=== PATIENT | male | born 1970 | race Caucasian/White ===

== ENCOUNTER 2019-10-13 20:36 | Emergency (ER) | payer MEDICARE, SELFPAY ==
[2019-10-13 20:38] VITALS: BP 137/80; PULSE 70; RESP 18; TEMP 36.7; O2SAT 96
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
[2019-10-13 20:40] VITALS: BMI 27.6
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
[2019-10-13 21:01] LABS: Basophils # 0.1 K/mm3 (0-0.2); Basophils % 0.6 % (0.1-2.0); Eosinophils # 0.4 K/mm3 (0.0-0.4); Eosinophils % 2.9 % (0.1-12.0); Hematocrit 44.7 % (42.0-52.0); Hemoglobin 15.5 g/dL (14.1-18.0); Lymphocytes # 3.4 K/mm3 (0.7-4.5); Lymphocytes % 27.9 % (10-50); Mean Corpuscular HGB Conc 34.8 g/dL (31.8-35.4); Mean Corpuscular Hemoglobin 31.7 pg (27.0-31.2); Mean Corpuscular Volume 91.2 fl (80-94); Mean Platelet Volume 6.7 fl (7.4-10.4); Monocytes # 0.5 K/mm3 (0.1-1.0); Monocytes % 3.6 % (1.7-9.3); Platelet Count 350 K/mm3 (142-424); White Blood Count 12.3 K/mm3 (4.8-10.8)
[2019-10-13 21:02] LABS: Alanine Aminotransferase 17 U/L (12-78); Albumin/Globulin Ratio 1.4 (1.1-1.8); Alkaline Phosphatase 49 U/L (38-126); Anion Gap 12.2 mEq/L (5-15); Aspartate Amino Transferase 30 U/L (17-59); Bilirubin,Total 1.2 mg/dl (0.2-1.3); Blood Urea Nitrogen 23 mg/dl (9-20); Calcium 9.9 mg/dl (8.4-10.2); Carbon Dioxide 33 mmol/L (22.0-30.0); Chloride 97 mmol/L (98-107); Creatinine Clearance Estimated 88 mL/min (50-200); Estimated Glomerular Filt Rate 58 ml/min (>60); GFR (African American) 70 ML/MIN (>60); Globulin 3.7 g/dL (1.3-3.2); Glucose 113 mg/dl (74-100); Potassium 3.2 mmoL/L (3.5-5.1); Sodium 139 mmol/L (136-145); Total Protein,Serum 8.7 g/dl (6.3-8.2)
--- NOTE | 2019-10-13 21:04 | PC.NURSE ---
Patient still has equal strong popliteal and pedal pulses in both legs.
[2019-10-13 21:05] VITALS: BP 140/76; PULSE 70; RESP 15; O2SAT 100
--- NOTE | 2019-10-13 21:12 | PC.NURSE ---
ortho medication specialist paged
--- NOTE | 2019-10-13 21:15 | PC.NURSE ---
on phone with Dr. Bullock at this time
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
[2019-10-13 21:48] VITALS: BP 143/76; PULSE 71; PULSE 75; RESP 16; RESP 18; TEMP 36.7; O2SAT 98
[2019-11-09 09:49] LABS: POC Glucose,Bedside 93 (70-110)
== END 2019-10-13 21:56 | disposition home or self-care (01) ==
PROVIDERS: Emergency Provider Emergency Medicine; PCP Family Medicine
DX: S82.454A Nondisplaced comminuted fracture of shaft of right fibula, initial encounter for closed fracture (principal); S81.831A Puncture wound without foreign body, right lower leg, initial encounter; Z23 Encounter for immunization; W34.00XA Accidental discharge from unspecified firearms or gun, initial encounter; W10.8XXA Fall (on) (from) other stairs and steps, initial encounter
CPT/HCPCS: 71045; 72170; 73590; 80053; 82962; 85025; 90471; 90714; 96365; 96375; 99284; J2405

== ENCOUNTER 2019-10-19 09:53 | Outpatient (RCR) | payer MEDICARE, SELFPAY | END 2019-10-19 10:20 | disposition home or self-care (01) | LOC: PT 09:53 | PROVIDERS: Visit Provider Orthopaedic Surgery | DX: S82.454A Nondisplaced comminuted fracture of shaft of right fibula, initial encounter for closed fracture (principal); W34.00XA Accidental discharge from unspecified firearms or gun, initial encounter | CPT/HCPCS: 97760 ==

== ENCOUNTER 2019-11-02 09:30 | Outpatient (RCR) | payer MEDICARE, SELFPAY ==
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
== END 2019-11-02 09:35 | disposition home or self-care (01) ==
LOC: PT 09:30
PROVIDERS: PCP Family Medicine; Visit Provider Orthopaedic Surgery
DX: S82.454A Nondisplaced comminuted fracture of shaft of right fibula, initial encounter for closed fracture (principal); W34.00XA Accidental discharge from unspecified firearms or gun, initial encounter
CPT/HCPCS: 97110; 97112; 97163

== ENCOUNTER → 2019-11-12 08:39 | Outpatient (CLI) | payer MEDICARE, SELFPAY ==
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
== END ==
PROVIDERS: PCP Family Medicine; Visit Provider Orthopaedic Surgery
DX: S82.409A Unspecified fracture of shaft of unspecified fibula, initial encounter for closed fracture (principal); W34.00XA Accidental discharge from unspecified firearms or gun, initial encounter
CPT/HCPCS: 73590

== ENCOUNTER 2020-07-03 14:10 | Emergency (ER) | payer MEDICARE, SELFPAY ==
[2020-07-03 14:35] VITALS: BP 137/91; PULSE 71; RESP 23; TEMP 36.8; O2SAT 98; BMI 29.5
--- NOTE | 2020-07-03 14:38 | XR_ITS ---
PROCEDURE: XR CHEST 2V CLINICAL HISTORY: COUGH COMPARISON: CR XR CHEST PORTABLE from 10/13/2019 FINDINGS: The cardiomediastinal silhouette and pulmonary vascularity are within normal limits. The lungs are clear without infiltrates, suspicious nodules, or pleural effusions. No acute bony abnormalities. IMPRESSION: No acute findings. Dictated by: Alden Devi MD 07/03/2020 14:50 Alden Devi MD in [place] 07/03/2020 14:50
--- NOTE | 2020-07-03 15:01 | HMH.EDUTC ---
[facility] [place] Impression: Persistent dry cough Allergic rhinitis Qualifiers: Allergic rhinitis trigger: unspecified Allergic rhinitis seasonality: unspecified Qualified Code(s): J30.9 - Allergic rhinitis, unspecified Disposition: Home, Self-Care Condition on Discharge: Good Instructions: Allergic Rhinitis, Cough, DI for Allergic Rhinitis, Albuterol Oral Inhalation, Fluticasone Nasal [place] Additional Instructions: *Monitor Temp, Over the counter Motrin or Tylenol as directed/as needed Tylenol every 4 hours and Motrin every 6 hours (as long as your family doctor has told you that you can take it) for fever or pain. and straight to ER if unable to lower temp less than 101.0 after medication given *Warm salt water gargles may help to soothe the throat *Throat Lozenges *Warm fluids like tea with honey may help to soothe the throat and help with coughing *Sleep elevated *Humidifier/Vaporizer *Flonase 2 sprays in each nostril daily but be aware that it may take 2-3 days before you notice improvement Use inhaler as prescribed if any shortness of breath or wheezing ?Inhaler every 4-6 hours as needed like we discussed. If unsure how to use it, ask pharmacist to demonstrate how. Should help open airways and improve cough, wheezing, and shortness of breath Follow up IMMEDIATELY for new or worsening symptoms or no Noticeable improvement over the next 48-72 hours. 911 for difficulty breathing or swallowing You were tested for today for COVID19 your test result should be back in the next 24-48 hours, you may call to the [facility] to see if your test results are back in the next 48 hours [phone] [facility] hours are 9am-9pm You was given a handout with instructions for Self Quarantine and Self isolation for while you wait on test results and what to do if they are positive If you are positive the Health Dept will be contacting you also Prescriptions: Albuterol Sulfate [Proventil-HFA 90mcg/puff Inh] 1 - 2 puffs IH Q4HP PRN #1 inh PRN Reason: Shortness Of Breath Transmission Status: Pending to [id number] Fluticasone Propionate [Flonase 50mcg nasal spray 16gm] 1 spr NS DAILY #1 bottle Transmission Status: Pending to [id number] Referrals: Xavier Crews MD [Primary Care Provider] - As needed Time of Disposition: 15:21 Medical Decision Making - Sebastian Inquiry Pt receiving controlled substance: No Sebastian was queried for this patient: No Vital Signs: 07/03/20 14:35 Temperature 98.2 F Temperature Source Oral Pulse Rate [Right] 71 Respiratory Rate 23 Blood Pressure [Right Arm] 137/91 H Blood Pressure Mean [Right Arm] 106 Blood Pressure Source [Right Arm] Automatic Cuff 02 Sat by Pulse Oximetry 98 Oxygen Delivery Method Room Air Orders (Tests/Meds): ORDERS Category Date Time Status Covid-19 Nasal PCR ([facility]) Routine Lab 07/03/20 14:59 Ordered - Radiology Data #1 Image(s): Chest Image Reviewed: Yes I have reviewed radiologist's interpretation Preliminary Findings: Normal/NAD IMPRESSION: No acute findings. [facility] [place] - General Stated complaint: cough Time Seen by Provider: 07/03/20 15:01 Mode of Arrival: Family Vehicle Source of Information: Patient Description of Symptoms (Recalled from Triage Doc. by RN): Pt c/o dry, persistant cough that has been present for about 3 wk. Pt denies any fevers, dyspnea, or n/v/d. Pt states he thinks this cough is caused from cleaning out a ditry and cat feces filled home of some of his tenents. Pt reports the cough is absent if he is laying down or breathing in through his nose, and worsens when he is sitting up and talking. Pt does report a headache when he has bad coughing fits . HEENT Symptoms (Recalled from RN notes): No Resp Symptoms (Recalled from RN notes): Yes Skin Symptoms (Recalled from RN notes): No MS Symptoms (Recalled from RN notes): No Functional Status (Recalled from RN notes): na - History of Present Illness Provider Complaint: Patie
[2020-07-03 15:20] VITALS: BP 135/89; PULSE 76; RESP 20; TEMP 36.8; O2SAT 99
== END 2020-07-03 15:27 | disposition home or self-care (01) ==
PROVIDERS: Emergency Provider Nurse Practitioner; PCP Family Medicine
DX: R05 Cough (principal); J30.9 Allergic rhinitis, unspecified; Z20.822 Contact with and (suspected) exposure to COVID-19; E78.5 Hyperlipidemia, unspecified; F33.1 Major depressive disorder, recurrent, moderate; Z79.899 Other long term (current) drug therapy
CPT/HCPCS: 71046; 99202; G0463; U0003

== ENCOUNTER 2020-09-16 16:46 | Emergency (ER) | payer MEDICARE, SELFPAY ==
[2020-09-16 17:25] VITALS: BP 140/82; PULSE 56; RESP 19; TEMP 36.6; O2SAT 98; BMI 29.5
--- NOTE | 2020-09-16 17:29 | XR_ITS ---
PROCEDURE INFORMATION: Exam: XR Lumbosacral Spine Exam date and time: 09/16/20 05:29 PM Age: 50 years old Clinical indication: Injury or trauma; Other: Injured back lifting over the weekend. ; Sprain or strain, lumbar ligaments; Injury details: Patient stated he broke his back when he was 10. He has been on disability unemployment for many years. He injured his back after lifting during the weekend. Now with severe low back pain. TECHNIQUE: Imaging protocol: XR of the lumbosacral spine. Views: 2 or 3 views. COMPARISON: No relevant prior studies available. FINDINGS: Bones/joints: Old compression fracture T12 mild. Disc space narrowing L4-L5 with grade 1 spondylolisthesis. Soft tissues: Unremarkable. IMPRESSION: Disc space narrowing L4-L5 with grade 1 spondylolisthesis.
--- NOTE | 2020-09-16 17:57 | HMH.EDUTC ---
[facility] [place] Clinical Impression: Low back pain Qualifiers: Chronicity: unspecified Back pain laterality: unspecified Sciatica presence: without sciatica Qualified Code(s): M54.5 - Low back pain Disposition: Home, Self-Care Condition on Discharge: Good Instructions: Low Back Pain, DI for Low Back Pain, DI for Chronic Pain -- Adult Additional Instructions: Follow up with your Family Doctor for further treatment and evaluation of low back pain Continued taking prescribed Methocarbamol for muscle spasms and Tramadol for pain as prescribed Return if needed Follow up with Dermatology for evaluation of lesion on your neck Straight to ER if any life threatening symptoms Prescriptions: Mupirocin Calcium [Mupirocin 2% Cream 15gm] 1 applicatio TP TID 10 Days #1 tube Transmission Status: [id number] Referrals: Amado Villanueva MD [Referring] - Xavier Crews MD [Primary Care Provider] - Jen Cowan MD [Referring] - Medical Decision Making - Sebastian Inquiry Pt receiving controlled substance: No Sebastian was queried for this patient: No Vital Signs: 09/16/20 17:25 09/16/20 18:33 Temperature 97.8 F 97.8 F Temperature Source Oral Pulse Rate 56 L Pulse Rate [Right Brachial] 56 L Respiratory Rate 19 19 Blood Pressure 140/82 Blood Pressure [Right Arm] 140/82 Blood Pressure Mean [Right Arm] 101 Blood Pressure Source [Right Arm] Automatic Cuff Blood Pressure Position [Right Arm] Sitting 02 Sat by Pulse Oximetry 98 Oxygen Delivery Method Room Air Orders (Tests/Meds): ED MEDICATIONS Discontinued Medications Generic Name Dose Route Start Last Admin Trade Name Caitlin PRN Reason Stop Dose Admin Methylprednisolone Sodium Succinate 125 mg 09/16/20 18:27 09/16/20 18:31 Methylprednisolone Sod Succ 125mg Vial IM 09/16/20 18:28 125 mg ONCE ONE Administration - Radiology Data #1 Image(s): L-Spine Image Reviewed: Yes I have reviewed radiologist's interpretation IMPRESSION: Disc space narrowing L4-L5 with grade 1 spondylolisthesis. Medical Decision Narrative: Patient states that he has had SoluMedrol in the past without reactions or complications [facility] [place] - General Stated complaint: back pain Time Seen by Provider: 09/16/20 17:57 Mode of Arrival: Ambulatory Source of Information: Patient Limitations: No Limitations Description of Symptoms (Recalled from Triage Doc. by RN): PATIENT C/O LOWER BACK PAIN SINCE TUESDAY MORNING HEENT Symptoms (Recalled from RN notes): No Resp Symptoms (Recalled from RN notes): No Skin Symptoms (Recalled from RN notes): No MS Symptoms (Recalled from RN notes): Yes Functional Status (Recalled from RN notes): WNL - History of Present Illness Provider Complaint: Patient states that he did alot of pulling and tugging over the weekend and thinks he may have pulled something in his left lower back States that he seen the chiropractor this morning and they told him that he may need to come and get it checked and get some xrays States that they wanted him to get copies of the disc for them to view. States that he also wanted to have area on his left shoulder/neck area checked where he had a spot for about 10yrs and his dog scratched it and now it is peeling Denies loss of control of bowel or bladder - Related Data Home Medications Medication Instructions Recorded Confirmed loratadine 10 mg capsule 10 mg PO DAILY 02/07/20 08/08/20 Fluoxetine HCl 40 mg PO DAILY 07/03/20 08/08/20 Tamsulosin HCl 0.4 mg PO DAILY 07/03/20 08/08/20 methocarbamoL [Methocarbamol 750mg 750 mg PO Q6H 07/03/20 08/08/20 Tab] Previous Rx's Medication Instructions Recorded Albuterol Sulfate [Proventil-HFA 1 - 2 puffs IH Q4HP PRN #1 inh 07/03/20 90mcg/puff Inh] Fluticasone Propionate [Flonase 1 spr NS DAILY #1 bottle 07/03/20 50mcg nasal spray 16gm] bupropion HCl 150 mg 24 hr tablet, See Rx Instructions .ROUTE 07/30/20 extended release .COMPLEX #90
[2020-09-16 18:33] VITALS: BP 140/82; PULSE 56; RESP 19; TEMP 36.6; O2SAT 98
== END 2020-09-16 18:35 | disposition home or self-care (01) ==
PROVIDERS: Emergency Provider Nurse Practitioner; PCP Family Medicine
DX: M54.5 Low back pain (principal); X50.0XXA Overexertion from strenuous movement or load, initial encounter; M48.54XS Collapsed vertebra, not elsewhere classified, thoracic region, sequela of fracture; F33.1 Major depressive disorder, recurrent, moderate; Z79.899 Other long term (current) drug therapy; E78.5 Hyperlipidemia, unspecified
CPT/HCPCS: G0463; 72100; 96372; 99202

== ENCOUNTER 2021-08-06 11:00 | Outpatient (RCR) | payer MEDICARE, SELFPAY ==
--- NOTE | 2021-07-20 13:56 | HMH.PTOPEV ---
PT Outpatient Evaluation Rehab PT Outpatient Evaluation Start: 07/20/21 13:03 Freq: Status: Active Protocol: Document 07/20/21 13:44 CARITO (Rec: 07/20/21 13:56 PHORMARISOL [id number]) Electronically Signed By Hugo An, PT 07/20/21 13:44 Outpatient Therapy Subjective History Subjective History Pt is 50 yowm who presents with c/o chronic low back pain x ~ 40 yrs ( I broke my back when I was 10 ) with worse symptoms on L side x ~2-3 wks with insidious onset. He reports constant aching pain with sharp pains intermittently. He has no numbness or tingling in the LEs. He reports seeing a chiropractor ~2-3 x/wk which helps with his pain. Chief Complaint Pain,Stiff Symptom Type Ache,Sharp Symptoms Relieved By Rest/Positioning Symptoms Aggravated By Standing,Physical Activity, Twisting,Walking Prior Functional Limitations Lifting Current Functional Limitations Lifting,Housework,Standing, Recreation Activity,Walking, Bending/Stooping Symptom Description Constant but Variable Level of pain today (0-10) 4 Pain scale - at its worst (0-10) 8 Lumbopelvic Eval Posture Thoracic Spine Posture Standing Position Increased Kyphosis Lumbar Spine Posture Standing Position Flattened,Flexed Palapation tenderness left lumbar spinal tenderness Yes paraspinal tenderness Yes buttock tenderness Yes Lumbar/Sacral Palpation Findings Tenderness Lumbar/Sacral Palpation Overall Comment L SI Accessory Movement T-spine Vertebrae Accessory Movements Central P/A [place] that Elicit Symptoms T10 bilateral T11 bilateral T12 bilateral L-spine Vertebrae Accessory Movements Central P/A [place] that Elicit Symptoms L2 bilateral L3 bilateral L4 bilateral L5 bilateral S1 bilateral Range of Motion Lumbar Spine Active Flexion Range of 0-40 Motion (degrees) Lumbar Spine Active Extension Range of 0 Motion (degrees) Left Lumbar Spine Lateral Flexion Active 0-10 Range of Motion (degrees) Right Lumbar Spine Lateral Flexion 0-5 Active Range of Motion (degrees) Manual Muscle Test Left Knee Extension Stren
== END 2021-08-06 11:05 | disposition home or self-care (01) ==
LOC: PT 11:00
PROVIDERS: PCP Family Medicine; Visit Provider Nurse Practitioner Family
DX: M54.50 Low back pain, unspecified (principal)
CPT/HCPCS: 97010; 97014; 97033; 97110; 97140; 97163; G0283

== ENCOUNTER → 2022-02-18 13:33 | Outpatient (CLI) | payer MEDICARE, SELFPAY | PROVIDERS: PCP Family Medicine; Visit Provider Family Medicine | DX: R51.9 Headache, unspecified (principal) ==

== ENCOUNTER → 2022-02-18 14:21 | Outpatient (CLI) | payer MEDICARE, SELFPAY ==
[2022-02-18 18:56] LABS: Basophils # 0.1 K/mm3 (0-0.2); Eosinophils # 0.3 K/mm3 (0.0-0.4); Eosinophils % 3.7 % (0.1-12.0); Hematocrit 44.9 % (42.0-52.0); Hemoglobin 14.8 g/dL (14.1-18.0); Lymphocytes % 28.4 % (10-50); Mean Corpuscular Hemoglobin 30.5 pg (27.0-31.2); Mean Corpuscular Volume 92.7 fl (80-94); Mean Platelet Volume 8.3 fl (7.4-10.4); Monocytes # 0.4 K/mm3 (0.1-1.0); Monocytes % 5.6 % (1.7-9.3); Neutrophils # 4.2 K/mm3 (1.8-7.8); Neutrophils % 61.2 % (37.0-80.0); Platelet Count 333 K/mm3 (142-424); Red Blood Count 4.84 M/mm3 (4.60-6.20); Red Cell Distribution Width 13.6 % (11.5-17.5); White Blood Count 6.9 K/mm3 (4.8-10.8)
[2022-02-18 20:47] LABS: Hemoglobin A1C 5.3 % (4.0-6.0)
[2022-02-18 21:08] LABS: Alanine Aminotransferase 20 U/L (12-78); Albumin Level 4.2 g/dl (3.5-5.0); Albumin/Globulin Ratio 1.4 (1.1-1.8); Alkaline Phosphatase 66 U/L (38-126); Anion Gap 15.7 mEq/L (5-15); Aspartate Amino Transferase 24 U/L (17-59); Bilirubin,Total 0.4 mg/dl (0.2-1.3); Blood Urea Nitrogen 21 mg/dl (9-20); Calcium 10.1 mg/dl (8.4-10.2); Carbon Dioxide 27 mmol/L (22.0-30.0); Chloride 101 mmol/L (98-107); Chol/HDL Ratio 4.3 (1-3.5); Cholesterol 194 mg/dl (140-200); Estimated Glomerular Filt Rate 88 ml/min (>60); GFR (African American) 107 ML/MIN (>60); Globulin 2.9 g/dL (1.3-3.2); Glucose 90 mg/dl (74-100); HDL Cholesterol 45 mg/dl (40-60); Potassium 3.7 mmoL/L (3.5-5.1); Sodium 140 mmol/L (136-145); Total Protein,Serum 7.1 g/dl (6.3-8.2); Triglycerides 224 mg/dl (30-150); VLDL Cholesterol 45 mg/dL (0-40)
[2022-02-18 21:19] LABS: Direct LDL Cholesterol 106.07 mg/dL (100-129)
[2022-02-18 21:40] LABS: Prostate Specific Ag Screen 0.7 ng/ml (0.0-4.0); Thyroid Stimulating Hormone 0.99 uIU/mL (0.465-4.68)
== END ==
PROVIDERS: PCP Family Medicine; Visit Provider Family Medicine
DX: Z00.00 Encounter for general adult medical examination without abnormal findings (principal); R51.9 Headache, unspecified; E11.9 Type 2 diabetes mellitus without complications; Z12.5 Encounter for screening for malignant neoplasm of prostate; E03.9 Hypothyroidism, unspecified
CPT/HCPCS: 80053; 80061; 83036; 84443; 85025; G0103

== ENCOUNTER → 2022-03-11 13:46 | Outpatient (CLI) | payer MEDICARE, SELFPAY ==
--- NOTE | 2022-03-11 13:46 | MR_ITS ---
FINAL REPORT CLINICAL HISTORY: headache, memory loss. WORSE 2 MONTHS. FINDINGS: Multi planar MR imaging was obtained through the brain without contrast. The midline structures appear intact. There is no evidence of Chiari malformation. On T2 and flair axial images the brain parenchyma is homogeneous. On diffusion-weighted images there is no evidence of restricted diffusion. There is lobular mucoperiosteal thickening in the maxillary sinuses, ethmoid air cells and sphenoid sinuses consistent with chronic pansinusitis. The seventh and eighth nerve root complexes are intact. IMPRESSION: No acute intracranial abnormality. Reviewed, Interpreted and Dictated by Phillip Perez MD Transcribed by Dharmesh Crenshaw Authenticated and . [facility]
== END ==
PROVIDERS: PCP Family Medicine; Visit Provider Specialist
DX: F41.9 Anxiety disorder, unspecified (principal); R51.9 Headache, unspecified
CPT/HCPCS: 70551

== ENCOUNTER → 2022-03-11 14:41 | Outpatient (CLI) | payer MEDICARE, SELFPAY ==
[2022-03-11 16:42] LABS: Erythrocyte Sedimentation Rate 12 mm/hr (0-20)
[2022-03-11 19:02] LABS: Thyroid Stimulating Hormone 1.01 uIU/mL (0.465-4.68)
[2022-03-11 19:38] LABS: Vitamin B12 518 pg/mL (239-931)
[2022-03-11 20:06] LABS: Folate 9.39 ng/mL
[2022-03-27 21:28] LABS: Antinuclear Antibodies (ANA) Negative
== END ==
PROVIDERS: PCP Family Medicine; Visit Provider Specialist
DX: R51.9 Headache, unspecified (principal); R41.3 Other amnesia
CPT/HCPCS: 36415; 70551; 82607; 82746; 84443; 85651; 86038

== ENCOUNTER → 2022-03-16 13:20 | Outpatient (CLI) | payer MEDICARE, SELFPAY | LOC: SL 13:22 | PROVIDERS: PCP Family Medicine; Visit Provider Specialist | DX: R41.3 Other amnesia (principal); R51.9 Headache, unspecified; G47.33 Obstructive sleep apnea (adult) (pediatric); R06.83 Snoring | CPT/HCPCS: G0399 ==

== ENCOUNTER → 2023-02-24 14:50 | Outpatient (CLI) | payer MEDICARE, SELFPAY ==
[2023-02-24 15:28] LABS: Basophils # 0.1 K/mm3 (0-0.2); Basophils % 1.4 % (0.1-2.0); Eosinophils # 0.2 K/mm3 (0.0-0.4); Hematocrit 43.9 % (42.0-52.0); Hemoglobin 15.8 g/dL (14.1-18.0); Lymphocytes % 37.4 % (10-50); Mean Corpuscular HGB Conc 35.9 g/dL (31.8-35.4); Mean Corpuscular Hemoglobin 32.1 pg (27.0-31.2); Mean Corpuscular Volume 89.5 fl (80-94); Monocytes # 0.2 K/mm3 (0.1-1.0); Monocytes % 3.8 % (1.7-9.3); Neutrophils # 2.8 K/mm3 (1.8-7.8); Neutrophils % 53.4 % (37.0-80.0); Platelet Count 254 K/mm3 (142-424); Red Cell Distribution Width 13.4 % (11.5-17.5); White Blood Count 5.3 K/mm3 (4.8-10.8)
[2023-02-24 16:35] LABS: Alanine Aminotransferase 28 U/L (12-78); Albumin Level 4.4 g/dl (3.5-5.0); Albumin/Globulin Ratio 1.5 (1.1-1.8); Alkaline Phosphatase 49 U/L (38-126); Anion Gap 13.8 mEq/L (5-15); Aspartate Amino Transferase 30 U/L (17-59); Bilirubin,Total 0.7 mg/dl (0.2-1.3); Blood Urea Nitrogen 20 mg/dl (9-20); Calcium 9.6 mg/dl (8.4-10.2); Carbon Dioxide 27 mmol/L (22.0-30.0); Chloride 101 mmol/L (98-107); Chol/HDL Ratio 4.1 (1-3.5); Cholesterol 200 mg/dl (140-200); Estimated Glomerular Filt Rate 70 ml/min (>60); GFR (African American) 84 ML/MIN (>60); Glucose 92 mg/dl (74-100); HDL Cholesterol 49 mg/dl (40-60); Potassium 3.8 mmoL/L (3.5-5.1); Sodium 138 mmol/L (136-145); Total Protein,Serum 7.4 g/dl (6.3-8.2); Triglycerides 105 mg/dl (30-150); VLDL Cholesterol 21 mg/dL (0-40)
[2023-02-24 17:07] LABS: Prostate Specific Ag Screen 0.6 ng/ml (0.0-4.0)
== END ==
PROVIDERS: PCP Family Medicine; Visit Provider Family Medicine
DX: W34.00XA Accidental discharge from unspecified firearms or gun, initial encounter (principal); E78.5 Hyperlipidemia, unspecified; Z12.5 Encounter for screening for malignant neoplasm of prostate
CPT/HCPCS: 36415; 80053; 80061; 83655; 85025; G0103

== ENCOUNTER → 2023-03-02 06:45 | Outpatient (CLI) | payer MEDICARE, SELFPAY ==
--- NOTE | 2023-03-02 | CA_ITS ---
APPROVED REPORT Exam: Exercise Treadmill Technologist: Carolyne Balderas, Ht: 6 ft 0 in Wt: 217 lbs BSA: 2.21 m2 HR: 71 bpm BP: 137/86 mmHg Rhythm: NSR Medical History Medications: Lovastatin,,,,, Gabapentin,,,,, Pramipexole,,,,, TAMSULOSIN,,,,, Albuterol,,,,, ProMETHAZINE,,,,, Ibuprofen,,,,, Prednisone,,,,, LoraTADINE,,,,, Trazodone,,,,, Methocarbamol,,,,, AZITHROMYCIN,,,,, Stress Test Details Test: Raimundo HR Resting HR: 78 bpm Max Heart Rate (APMHR): 166 bpm Max HR Achieved: 145 bpm Target HR (85% APMHR): 141 bpm % of APMHR: 87 Recovery HR: 90 bpm HR response to stress: Normal HR response to stress BP Resting BP: 128.0/86.0 mmHg Max BP: 176.0/70.0 mmHg Recovery BP: 133.0/87.0 mmHg BP response to stress: Normal blood pressure response to stress. ECG Resting ECG: NSR Stress EC.[address] depression Arrhythmia: None Recovery ECG: Return to baseline within 3 minutes of recovery Recovery Arrhythmia: None Clinical Exercise duration: 09:00 min Highest Stage Achieved: III Exercise capacity: 10.1 METs Overall Exercise Capacity for Age: Average Stress ECG Conclusion The patient was able to exercise for a total of 9 minutes, 0 seconds Raimundo protocol. He achieved a total of 10.1 METS. He has average exercise capacity compared to age and sex matched peers. He has normal HR and BP response to exercise. Max HR: 145 %of PM: 87% Max BP: 176/70 METs: 10.1 Test stopped due to: SOA, fatigue Symptoms: No CP. Arrhythmias/Ectopy: None ST-T Changes: Average exercise capacity. Within normal ST response to exercise. Myoview images reported separately. Conclusion: Normal GXT. Myoview images reported separately. Test Summary REST . . . . . . . Sitting REST . . . . . . . Standing REST . . . . . . . Standing REST 04:32 0.0 0.0 78 . 128/ 86 . . Stage 1 01:00 10.0 1.7 91 . . . . Stage 1 02:00 10.0 1.7 109 . . . . Stage 1 03:00 10.0 1.7 114 . 176/ 70 . . Stage 2 01:00 12.0 2.5 122 . . . . Stage 2 02:00 12.0 2.5 130 . . . . Stage 2 03:00 12.0 2.5 129 . 176/ 70 . . Stage 3 01:00 14.0 3.4 136 . . . . Stage 3 02:00 14.0 3.4 141 . . . . Stage 3 . . . . . . . Myoview Injected Stage 3 03:00 14.0 3.4 145 . . . Stop exercise at 09:00 RECOVERY 01:00 0.0 0.0 128 . . . . RECOVERY 02:00 0.0 0.0 100 . . . . RECOVERY 03:00 0.0 0.0 93 . 157/ 96 . . RECOVERY 04:00 0.0 0.0 90 . 147/ 88 . . RECOVERY 05:00 0.0 0.0 90 . 133/ 87 . . RECOVERY 05:21 0.0 0.0 88 . 133/ 87 . . Electronically signed by : Amada Dunham MD 03/02/2023 12:56:46
--- NOTE | 2023-03-02 06:53 | NM_ITS ---
APPROVED REPORT Exam: Nuclear Stress Test Indication: CAD, H/O SC, HYPERLIPIDEMIA, SOB Patient Location: Outpatient Stress Tech: Carolyne Concepcion [facility] Tech:GISELA Joyner RT (R)(N)(M) Ht: 6 ft 1 in Wt: 213 lbs HR: 71 bpm BP: 137/86 mmHg BSA: 2.21 m2 Rhythm: NSR TID: 1.25 BMI: 28.0 History: CAD, H/O SC, HYPERLIPIDEMIA, SOB6 Procedure: Patient exercised on Raimundo protocol 9:00 minutes and sec, resting heart rate 71 bpm, resting blood pressure 137/86 mmHg, with exercise maximum heart rate achived was 145 bpm which is 87 % of the maximum predicted heart rate and blood pressure was 176/70 mmHg. Test was stopped due to FATIGUE. Patient denied any complaint of chest pain. Patient has Average exercise capacity, achieved 10.1 METs of workload on treadmill, the blood pressure response to exercise was normal. Cardiac Stress and Resting SPECT Images: Cardiac Stress and Resting SPECT images were obtained using technetium 99m Myoview 30.8 mCi stress and 10.13 mCi at rest. Resting and stress imaging in supine and prone positions demonstrate a medium sized, mild, reversible perfusion defect in the mid to distal septal and anteroseptal LV hilton. There is increased transient ischemic dilatation ratio (TID 1.25), suggestive of possible multivessel disease or balanced ischemia. Gated imaging demonstrates mild reduction in global LV systolic function. LVEF is calculated at 47%. Conclusion: Medium sized, mild, reversible perfusion defect in the mid to distal septal and anteroseptal LV hilton. Findings are suggestive of reversible ischemia. There is increased transient ischemic dilatation ratio (TID 1.25), suggestive of possible multivessel disease or balanced ischemia. Gated imaging demonstrates mild reduction in global LV systolic function. LVEF is calculated at 47%. Electronically signed by : Amada Dunham MD 03/02/2023 12:58:56
== END ==
LOC: RAD 06:48
PROVIDERS: PCP Family Medicine; Visit Provider Family Medicine
DX: R06.09 Other forms of dyspnea (principal); R94.39 Abnormal result of other cardiovascular function study
CPT/HCPCS: 78452; 93017; 93018; A9502

== ENCOUNTER → 2023-03-29 12:30 | Outpatient (CLI) | payer MEDICARE, SELFPAY ==
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
== END ==
LOC: RAD 12:31
PROVIDERS: PCP Family Medicine; Visit Provider Orthopaedic Surgery
DX: S82.201A Unspecified fracture of shaft of right tibia, initial encounter for closed fracture (principal); S82.401A Unspecified fracture of shaft of right fibula, initial encounter for closed fracture
CPT/HCPCS: 73590

== ENCOUNTER → 2023-03-30 07:41 | Outpatient (CLI) | payer MEDICARE, SELFPAY ==
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
== END ==
PROVIDERS: PCP Family Medicine; Visit Provider Physician Assistant
DX: E78.5 Hyperlipidemia, unspecified (principal); I25.10 Atherosclerotic heart disease of native coronary artery without angina pectoris; I25.2 Old myocardial infarction; R06.00 Dyspnea, unspecified; R07.9 Chest pain, unspecified; R94.30 Abnormal result of cardiovascular function study, unspecified; R94.31 Abnormal electrocardiogram [ECG] [EKG]; Z82.49 Family history of ischemic heart disease and other diseases of the circulatory system; Z87.891 Personal history of nicotine dependence
CPT/HCPCS: 93306

== ENCOUNTER 2023-04-01 07:55 | Day surgery (SDC) | payer MEDICARE, SELFPAY ==
[2023-04-01] VITALS (14 sets, daily range): BP systolic 100–138; BP diastolic 64–88; PULSE 44–69; RESP 16–20; TEMP 36.9–37; O2SAT 93–99; BMI 30.4
--- NOTE | 2023-04-01 07:13 | IR_ITS ---
APPROVED REPORT Patient Location: Outpatient PROCEDURES Left heart catheterization Left ventriculogram Selective coronary angiogram INDICATION Abnormal Myoview, Angina pectoris Informed consent was obtained prior to the procedure. COMPLICATIONS NONE Estimated Blood Loss: LESS THAN 10 ML TECHNIQUE One percent lidocaine used to anesthetize the right anterior aspect of the wrist. The right radial artery was accessed via the Seldinger technique. A 6 Chinese sheath was placed in the right radial artery. 2.5 mg of Verapamil, 800 mcg of nitroglycerin, 1mg Lidocaine and 5000 U Heparin were given through the arterial sheath. The papa catheter was also used to perform left heart catheterization, left ventriculogram and selective coronary angiogram. At the end of the procedure the sheath was removed good hemostasis was achieved using Traclet band, patient was transferred to the postop holding area in stable condition. ANGIOGRAPHIC RESULTS The left main artery Normal The left anterior descending artery Proximally normal with mid vessel diffuse 40% stenoses. The entire LAD is a small caliber vessel which does not reach the apex The circumflex artery Is codominant and has mild 10% luminal irregularities The right coronary artery Is codominant and has diffuse 10% mild luminal irregularities The CORBIN ventriculogram reveals Preserved 55 to 60% The left ventricular end-diastolic pressure 10 mmHg IMPRESSION Moderate nonflow limiting coronary disease throughout the small caliber mid LAD Preserved ejection fraction Normal left ventricular end-diastolic pressure PLAN 1. Aggressive risk factor modification 2. Medical management Electronically signed by : Alex Mckeon MD 04/01/2023 11:09:00
[2023-04-01 08:17] LABS: Basophils # 0.1 K/mm3 (0-0.2); Basophils % 1.3 % (0.1-2.0); Eosinophils # 0.2 K/mm3 (0.0-0.4); Eosinophils % 4.8 % (0.1-12.0); Hematocrit 44.4 % (42.0-52.0); Hemoglobin 15.6 g/dL (14.1-18.0); Lymphocytes % 39.1 % (10-50); Mean Corpuscular HGB Conc 35.2 g/dL (31.8-35.4); Mean Corpuscular Hemoglobin 31.7 pg (27.0-31.2); Mean Platelet Volume 6.7 fl (7.4-10.4); Monocytes # 0.3 K/mm3 (0.1-1.0); Monocytes % 5.3 % (1.7-9.3); Neutrophils # 2.5 K/mm3 (1.8-7.8); Neutrophils % 49.5 % (37.0-80.0); Platelet Count 228 K/mm3 (142-424); Red Blood Count 4.93 M/mm3 (4.60-6.20); Red Cell Distribution Width 13.4 % (11.5-17.5)
[2023-04-01 08:24] LABS: Chloride 103 mmol/L (98-107); Potassium 3.5 mmoL/L (3.5-5.1); Sodium 140 mmol/L (136-145)
[2023-04-01 08:27] LABS: Anion Gap 9.5 mEq/L (5-15); Blood Urea Nitrogen 19 mg/dl (9-20); Calcium 8.7 mg/dl (8.4-10.2); Carbon Dioxide 31 mmol/L (22.0-30.0); Creatinine Clearance Estimated 110 mL/min (50-200); Estimated Glomerular Filt Rate 70 ml/min (>60); GFR (African American) 84 ML/MIN (>60); Glucose 96 mg/dl (74-100)
[2023-04-01] MEDS: diphenhydrAMINE 50MG/ML VIAL 50 MG IV (10:48)
[2023-04-01] MEDS: VERAPAMIL 2.5MG/ML 2ML VIAL 2.5 MG IV (11:02)
[2023-04-01] MEDS: 0.9 % SODIUM CHLORIDE 500 ML 25 ML IV (11:03)
[2023-04-01] MEDS: HEPARIN 1,000 UNITS/500ML NS (CATH LAB) 3000 UNIT IV (11:03)
[2023-04-01] MEDS: LIDOCAINE 1% 10ML MDV 20 ML IJ (11:03)
[2023-04-01] MEDS: NITROGLYCERIN 800MCG/8ML SYR (CATH LAB) 800 MCG IA (11:03)
[2023-04-01] MEDS: HEPARIN 1,000 UNITS/ML 10ML VIAL (CATH LAB) 10000 UNIT IV (11:03)
[2023-04-01] MEDS: MIDAZOLAM HCL 1MG/1ML 5ML VIAL 1 MG IV (11:04)
[2023-04-01] MEDS: FENTANYL 100MCG/2ML VIAL 50 MCG IV (11:04)
[2023-04-01] MEDS: IOPAMIDOL-370 (76%);100ML BOTTLE 60 ML IV (13:38)
== END 2023-04-01 13:53 | disposition home or self-care (01) ==
PROVIDERS: PCP Family Medicine; Visit Provider Internal Medicine
DX: E78.5 Hyperlipidemia, unspecified (principal); I25.118 Atherosclerotic heart disease of native coronary artery with other forms of angina pectoris; I25.2 Old myocardial infarction; R06.00 Dyspnea, unspecified; R07.9 Chest pain, unspecified; R94.30 Abnormal result of cardiovascular function study, unspecified; R94.31 Abnormal electrocardiogram [ECG] [EKG]; Z82.49 Family history of ischemic heart disease and other diseases of the circulatory system; Z79.899 Other long term (current) drug therapy
CPT/HCPCS: 80048; 85025; 93458; 99152; C1725; C1760; C1769; J1644; Q9967

== ENCOUNTER 2023-06-29 10:45 | Outpatient (CLI) | payer MEDICARE, SELFPAY ==
[2023-06-29 11:13] LABS: Basophils # 0.1 K/mm3 (0-0.2); Basophils % 1.8 % (0.1-2.0); Eosinophils # 0.3 K/mm3 (0.0-0.4); Eosinophils % 5.9 % (0.1-12.0); Hematocrit 43.2 % (42.0-52.0); Hemoglobin 14.9 g/dL (14.1-18.0); Lymphocytes # 1.9 K/mm3 (0.7-4.5); Lymphocytes % 37.7 % (10-50); Mean Corpuscular HGB Conc 34.5 g/dL (31.8-35.4); Mean Corpuscular Hemoglobin 32.5 pg (27.0-31.2); Mean Corpuscular Volume 94.2 fl (80-94); Mean Platelet Volume 7.6 fl (7.4-10.4); Monocytes # 0.3 K/mm3 (0.1-1.0); Neutrophils # 2.4 K/mm3 (1.8-7.8); Neutrophils % 48.5 % (37.0-80.0); Platelet Count 263 K/mm3 (142-424); Red Blood Count 4.59 M/mm3 (4.60-6.20); Red Cell Distribution Width 13.9 % (11.5-17.5)
[2023-06-29 12:49] LABS: Chloride 104 mmol/L (98-107); Potassium 3.7 mmoL/L (3.5-5.1); Sodium 138 mmol/L (136-145)
[2023-06-29 12:51] LABS: Blood Urea Nitrogen 15 mg/dl (9-20); Estimated Glomerular Filt Rate 70 ml/min (>60); GFR (African American) 84 ML/MIN (>60)
[2023-06-29 12:52] LABS: Alanine Aminotransferase 31 U/L (12-78); Albumin Level 3.9 g/dl (3.5-5.0); Alkaline Phosphatase 52 U/L (38-126); Anion Gap 6.7 mEq/L (5-15); Aspartate Amino Transferase 33 U/L (17-59); Bilirubin,Direct 0.2 mg/dl (0.0-0.4); Bilirubin,Indirect 0.5 mg/dL (0.0-0.9); Bilirubin,Total 0.7 mg/dl (0.2-1.3); Bilirubin,Unconjugated 0.4 mg/dL (0.0-1.1); Calcium 9.2 mg/dl (8.4-10.2); Carbon Dioxide 31 mmol/L (22.0-30.0); Chol/HDL Ratio 3.7 (1-3.5); Cholesterol 147 mg/dl (140-200); Glucose 101 mg/dl (74-100); HDL Cholesterol 40 mg/dl (40-60); Total Protein,Serum 6.5 g/dl (6.3-8.2); Triglycerides 180 mg/dl (30-150); VLDL Cholesterol 36 mg/dL (0-40)
[2023-06-29 13:21] LABS: Thyroid Stimulating Hormone 1.06 uIU/mL (0.465-4.68)
[2023-06-29 13:31] LABS: Free T4 (Free Thyroxine) 1.03 ng/dl (0.78-2.19)
[2023-06-29 14:14] LABS: Direct LDL Cholesterol 66.44 mg/dL (100-129)
== END 2023-06-29 23:59 ==
LOC: LAB 10:47
PROVIDERS: Physician Assistant; PCP Family Medicine; Visit Provider Orthopaedic Surgery
DX: Z82.49 Family history of ischemic heart disease and other diseases of the circulatory system (principal); I25.2 Old myocardial infarction; I25.10 Atherosclerotic heart disease of native coronary artery without angina pectoris; R94.31 Abnormal electrocardiogram [ECG] [EKG]; R06.00 Dyspnea, unspecified; E78.5 Hyperlipidemia, unspecified; E11.9 Type 2 diabetes mellitus without complications; I11.9 Hypertensive heart disease without heart failure; R78.71 Abnormal lead level in blood
CPT/HCPCS: 36415; 80048; 80061; 80076; 83655; 84439; 84443; 85025

== ENCOUNTER 2023-09-06 09:25 | Day surgery (SDC) | payer MEDICARE, SELFPAY ==
[2023-09-01 10:38] VITALS: BMI 29.8
[2023-09-06] VITALS (7 sets, daily range): BP systolic 116–129; BP diastolic 54–77; PULSE 55–69; RESP 16–22; TEMP 36.4–36.6; O2SAT 93–99
[2023-09-06] MEDS: LACTATED RINGERS 1000ML 1,000 ML 25 ML IV (09:51)
--- NOTE | 2023-09-06 09:54 | P.PCN_ITS ---
Procedure: Date: 09/06/23 Patient Date of :: 1970 Procedure Performed:: Colonoscopy with polypectomy Indications:: History of colon polyps Performing Provider:: Calvin Mejia MD Referring Provider:: . Sedation:: Monitored anesthesia care Procedure:: After informed consent was obtained the patient was taken to the endoscopy suite. Sedation ensued after the patient was transferred to the left lateral d ecubitus position. Pulse, blood pressure, and oxygen saturation were monitored throughout the procedure. Digital rectal exam revealed no significant abnormality. The colonoscope was placed in position. The entire colon was evaluated. The colonoscope was carefully removed and the patient was transferred to recovery in stable condition. Please see findings and specimens below for detail. Findings:: Hemorrhoidal cushions Bowel preparation fair to moderate Moderate tortuosity Fairly profound lack of relaxation/spasticity Polyps (see specimens) Specimens:: Adjacent polyps at 30 cm (cold biopsy forceps) Polyp at 7 cm (cold snare) Recommendations:: Timing of repeat colonoscopy is pending pathology but will likely be in 2-3 years secondary to fair to moderate bowel preparation, tortuosity, and spasticity/lack of relaxation. Complications:: No immediate Estimated blood obtained (mL): 1 Colonoscopy Component Colonoscopy Component Was a colonoscopy performed during today's procedure?: Yes Recommended follow up colonoscopy of at least 10 years?: No If no, follow up colonoscopy recommended in ___ years?: (See above) Reason for not recommending >/= 10 yr follow-up interval?: (See above)
--- NOTE | 2023-09-06 10:44 | EXP.ANES.CKL ---
[facility] Disclaimer: The information contained in this section may have been updated after the patient was seen, as this information can be updated by other users. Medical History Abnormal result of cardiovascular function study Family history of ischemic heart disease History of [place] (myocardial infarction) Coronary artery disease Abnormal electrocardiogram [ECG] [EKG] Mood disorder Surgical History (Updated 09/06/23 @ 09:50 by Josefina Benoit RN) History of colonoscopy Family History Other Family history of diabetes mellitus type II Family history of stroke Social History Smoking Status: Never smoker alcohol intake: never substance use type: denies use current occupational status: disabled Travel in the last 8 weeks: Inside the [place] household members: spouse housing: house marital status: [facility] Anesthesia Checklist Patient Identification Patient Identification: Arm Band, Family and Verbal (Name & ) Structural Data Admitted From: Home Planned Operative Procedure/s: colonoscopy Consent for Planned Operative Procedure(s) Verified: Yes Verified Documents: Surgical Consent and History and Physical NPO Status Verified Time NPO: 07:00 Chart Verification Results Verified: CBC, BMP and ECG Additional verifications Patient : No Anesthesia Reactions: No Cardiovascular Assessment Heart Sounds: S1 & S2 Pulse Rhythm: Irregular Peripheral Edema: No Airway Assessment Mallampati Score:: Class II C-Spine Mobility Assessed: Yes (FROM) TMJ Mobility Assessed: Yes Dentition: Good Dentition (Nothing loose per pt.) Neurological Assessment Level of Consciousness: Awake, Alert, Appropriate and Follows Commands Anesthesia Plan Anesthesia Risk discussed: Yes Anesthesia Plan: Verified ASA Class: III Anesthesia Type: MAC
--- NOTE | 2023-09-06 10:45 | EXP.ANES.I ---
[facility] Anesthesia Record Part I Anesthesia Record I Intake, IV Amount: 300 Hydration: Adequate Estimated blood loss (mL): 1 Urine output (mL): 0 Blood Products used (#): none Blood Pressure: 125/54 SaO2: 95 Pulse Rate: 63 Airway Patency: Patent Respiratory Rate: 18 Temperature: 97.6 F Patient is:: Awake (Talking) and Stable Stable to PACU at:: 10:44
== END 2023-09-06 11:19 | disposition home or self-care (01) ==
PROVIDERS: PCP Family Medicine; Visit Provider Surgery
PROC: 0DJD8ZZ Inspection of Lower Intestinal Tract, Via Natural or Artificial Opening Endoscopic (ICD-10-PCS; CPT 45380; principal; 2023-09-06 10:30)
DX: Z12.11 Encounter for screening for malignant neoplasm of colon (principal); Z86.010 Personal history of colon polyps; K64.8 Other hemorrhoids; K63.5 Polyp of colon
CPT/HCPCS: 45380; 45385; J2704; J7120

== ENCOUNTER 2023-09-12 09:32 | Outpatient (CLI) | payer MEDICARE, SELFPAY ==
--- NOTE | 2023-09-12 09:36 | XR_ITS ---
FINAL REPORT CLINICAL HISTORY: SOA, COUGH X3 MONTHS COMPARISON: 07/03/2020 FINDINGS: Two views of the chest were obtained. The heart size and pulmonary vascularity are within normal limits. The mediastinum is normal. There are small left base opacities, atelectasis or pneumonia. There is no pneumothorax. The bony thorax is intact. IMPRESSION: Small left base opacities, atelectasis or pneumonia. Reviewed, Interpreted and Dictated by Sy Oreilly III, MD Transcribed by Tabitha Davila Authenticated and [facility]
== END 2023-09-12 23:59 | disposition home or self-care (01) ==
LOC: RAD 09:33
PROVIDERS: PCP Family Medicine; Visit Provider Nurse Practitioner Family
DX: R05.9 Cough, unspecified (principal); R06.09 Other forms of dyspnea
CPT/HCPCS: 71046

== ENCOUNTER 2023-09-19 12:22 | Outpatient (CLI) | payer MEDICARE, SELFPAY ==
--- NOTE | 2023-09-19 12:25 | XR_ITS ---
FINAL REPORT CLINICAL HISTORY: Back pain COMPARISON: 09/16/2020 FINDINGS: LUMBAR SPINE AP and lateral views were obtained. There is no acute fracture. There is 7 mm of anterolisthesis of L4 on L5. Mild degenerative changes are noted. Vertebrae are normal height. Prevertebral soft tissues are unremarkable. IMPRESSION: No acute bony abnormality. Reviewed, Interpreted and Dictated by Sy Oreilly III, MD Transcribed by Jaleesa Mcclellan Authenticated and [facility]
== END 2023-09-19 23:59 | disposition home or self-care (01) ==
LOC: RAD 12:23
PROVIDERS: PCP Nurse Practitioner Family; Visit Provider Family Medicine
DX: G89.29 Other chronic pain; M54.50 Low back pain, unspecified
CPT/HCPCS: 72100

== ENCOUNTER 2023-09-21 14:52 | Outpatient (CLI) | payer MEDICARE, SELFPAY ==
[2023-09-21 15:30] VITALS: PULSE 86; PULSE 90
[2023-09-21] MEDS: ALBUTEROL 0.083% 2.5 MG/3 ML NEB IH (15:30)
== END 2023-09-21 23:59 | disposition home or self-care (01) ==
LOC: RT 14:54
PROVIDERS: PCP Family Medicine; Visit Provider Nurse Practitioner Family
DX: R06.09 Other forms of dyspnea (principal); R05.3 Chronic cough; F17.210 Nicotine dependence, cigarettes, uncomplicated
CPT/HCPCS: 94060; 94640; J7613

== ENCOUNTER 2023-10-17 14:10 | Emergency (ER) | payer MEDICARE, SELFPAY ==
--- NOTE | 2023-10-17 14:11 | ED_ITS ---
Discharge Plan Disposition Patient Disposition: Home, Self-Care Condition: Good Prescriptions Prescriptions: No Action famotidine 20 mg tablet 20 mg PO DAILY Qty: 30 2RF benzonatate 100 mg capsule 100 mg PO TID PRN (Reason: cough) Qty: 30 1RF prednisone 20 mg tablet 20 mg PO BID 5 Days Qty: 10 0RF gybgrvbgmjlttbm-zuncwxxxh-IF 2-30-10 mg/5 mL syrup 10 ml PO Q6H PRN (Reason: cold symptoms) Qty: 200 1RF levofloxacin 750 mg tablet 750 mg PO DAILY Qty: 7 0RF gabapentin 600 mg tablet 600 mg PO QID Qty: 120 5RF nitroglycerin 0.4 mg tablet, sublingual 0.4 mg sublingual Q5M PRN (Reason: chest pain) Qty: 25 0RF Rx Instructions: do not exceed 3 doses per episode methocarbamol 750 mg tablet 750 mg PO Q8H PRN (Reason: muscle spasm) Qty: 90 10RF bupropion HCl 150 mg tablet extended release 24 hr See Rx Instructions .ROUTE .COMPLEX Qty: 90 1RF Dose Instruction: TAKE 1 TABLET BY MOUTH EVERY DAY Rx Instructions: TAKE 1 TABLET BY MOUTH EVERY DAY tamsulosin 0.4 mg capsule See Rx Instructions .ROUTE .COMPLEX Qty: 90 1RF Dose Instruction: TAKE 1 CAPSULE BY MOUTH EVERY DAY Rx Instructions: TAKE 1 CAPSULE BY MOUTH EVERY DAY trazodone 150 mg tablet 150 mg PO DAILY Qty: 90 3RF ibuprofen 600 mg tablet See Rx Instructions .ROUTE .COMPLEX Qty: 90 5RF Dose Instruction: TAKE 1 TABLET BY MOUTH THREE TIMES A DAY NEEDED FOR PAIN Rx Instructions: TAKE 1 TABLET BY MOUTH THREE TIMES A DAY NEEDED FOR PAIN pramipexole 1 mg tablet See Rx Instructions .ROUTE .COMPLEX Qty: 90 0RF Dose Instruction: TAKE 1 TABLET BY MOUTH EVERYDAY AT BEDTIME Rx Instructions: TAKE 1 TABLET BY MOUTH EVERYDAY AT BEDTIME aspirin 81 mg tablet,delayed release (DR/EC) See Rx Instructions .ROUTE .COMPLEX Qty: 90 3RF Dose Instruction: TAKE 1 TABLET BY MOUTH EVERY DAY Rx Instructions: TAKE 1 TABLET BY MOUTH EVERY DAY rosuvastatin [Crestor] 40 mg tablet 40 mg PO DAILY Qty: 30 2RF loratadine [Claritin] 10 mg tablet See Rx Instructions .ROUTE .COMPLEX Rx Instructions: TAKE ONE TABLET BY MOUTH DAILY FOR ALLERGIES Referrals Follow up/Referrals: Xavier Crews MD [Primary Care Provider] - See instructions Activity Restrictions/Add. Instructions Additional Instructions/Restrictions: Stay hydrated. 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 Return to ER for any worsening signs or symptoms as needed. Clinical Impressions Clinical Impression: Vasovagal near syncope Instructions Patient Instructions: DI for Syncope in Adults (Fainting) Discharge ED Provider: Ezequiel Bañuelos HPI <FEDE Nesbitt - Last Filed: 10/17/23 15:19> General Chief Complaint: Dizziness Stated Complaint: chest pain Time Seen by Provider: 10/17/23 14:11 History of Present Illness HPI narrative: Patient presents for evaluation of near syncope. Patient states that he was working in his shop and squatted down and when he stood up normally he got dizzy lightheaded and felt like his heart was racing. He stumbled but did not fall or pass out. He also reported some chest pressure but no specific pain shortness of breath fever chills hemoptysis hematochezia melena nausea vomiting diarrhea. Patient reports that his chest feels tight but denies diaphoresis or wheezing. Related Data Home Medications Medication Instructions Recorded Confirmed loratadine 10 mg tablet (Claritin) See Rx Instructions .Route .COMPLEX 09/01/23 09/16/23 Previous Rx's Medication Instructions Recorded methocarbamol 750 mg tablet 750 mg PO Q8H PRN muscle spasm #90 11/18/22 tabs nitroglycerin 0.4 mg sublingual 0.4 mg sublingual Q5M PRN chest 03/21/23 tablet pain #25 tabs bupropion HCl 150 mg 24 hr tablet, See Rx Instructions .Route 03/24/23 extended release .COMPLEX #90 tabs tamsulosin 0.4 mg capsule See Rx Instructions .Route 03/24/23 .COMPLEX #90 caps trazodone 150 mg tablet 150 mg PO DAILY #90 tabs 05/05/23 ibuprofen 600 mg tablet See Rx Instructions .Route 07/05/23 .COMPLEX #90 tabs pramipexole 1 mg tablet See Rx Instructions .Route 07/06/23 .COMPLEX #90 tabs benzonatate 100 mg capsule 100 mg PO TID PRN cough #30 caps 09/09/23 famotidine 20 mg tablet 20 mg PO DAILY #30 tabs 05/31/24 aspirin 81 mg tablet,delayed See Rx Instructions .Route 09/16/23 release .COMPLEX #90 tabs scfopwxyfxtawpc-hqitfvqudctqfgk-PK 10 ml PO Q6H PRN cold symptoms 09/16/23 2 mg-30 mg-10 mg/5 mL oral syrup #200 mL gabapentin 600 mg tablet 600 mg PO QID nerve #120 tabs 09/16/23 levofloxacin 750 mg tablet 750 mg PO DAILY #7 tabs 09/16/23 prednisone 20 mg tablet 20 mg PO BID 5 days #10 tabs 09/16/23 rosuvastatin 40 mg tablet (Crestor) 40 mg PO DAILY #30 tabs 10/07/23 Allergies Allergy/AdvReac Type Severity Reaction Status Date / Time pseudoephedrine AdvReac Mild RLS Verified 10/17/23 14:26 [From [facility]] [facility] <FEDE Nesbitt - Last Filed: 10/17/23 15:19> [facility] Disclaimer: The information contained in this section may have been updated after the patient was seen, as this information can be updated by other users. Medical History Abnormal result of cardiovascular function study Family history of ischemic heart disease History of UT (myocardial infarction) Coronary artery disease Abnormal electrocardiogram [ECG] [EKG] Mood disorder Previous leg gnosis of bipolar disorder. Currently stable under the care of PCP Surgical History History of colonoscopy Family History Other Family history of diabetes mellitus type II Family history of stroke Social History Smoking Status: Never smoker alcohol intake: never substance use type: denies use current occupational status: disabled Travel in the last 8 weeks: Inside the [place] household members: spouse housing: house marital status: <FEDE Nesbitt - Last Filed: 10/17/23 15:19> ROS Obtained: Yes Systems reviewed as appropriate & no additional complaints except as documented Physical Exam <FEDE Nesbitt - Last Filed: 10/17/23 15:19> General General appearance: alert and in no apparent distress Chest Chest inspection: Present normal inspection and symmetric chest wall rise; Absent tenderness Respiratory Respiratory exam: Present normal lung sounds bilaterally; Absent respiratory distress, wheezes, stridor or accessory muscle use Cardiovascular Cardiovascular exam: Present regular rate, normal rhythm, normal heart sounds, +S1 and +S2 Abdominal Exam Abdominal exam: Present soft and normal bowel sounds; Absent tenderness Neurological Exam Neurological exam: Present alert and oriented X3 Psychiatric Psychiatric exam: Present normal affect and normal mood HEART Score <FEDE Nesbitt - Last Filed: 10/17/23 15:19> HEART Score HEART Score assessment performed?: Yes History (anamnesis): Slightly suspicious ECG: Normal Age: 45-65 years Risk factors: Atherosclerosis history Troponin: </= normal limit HEART Score: 3 <Ezequiel Bañuelos MD - Last Filed: 10/18/23 07:02> HEART Score HEART Score: 3 Critical Care <FEDE Nesbitt - Last Filed: 10/17/23 15:19> Critical Care Time Critical Care Time: No Medical Decision Making <FEDE Nesbitt - Last Filed: 10/17/23 15:19> Medical Records Medical records reviewed: Yes I reviewed the patient's medical records. Sebastian Inquiry Pt receiving controlled substance: No Vital Signs Vital Signs: 10/17/23 14:15 10/17/23 14:15 10/17/23 15:00 Temperature 97.9 F Temperature Source Oral Pulse Rate 97 H 75 Pulse Rate [Left] 83 Respiratory Rate 16 14 13 Blood Pressure 146/100 H 129/92 H Blood Pressure [Right Arm] 141/96 H Blood Pressure Mean [Right Arm] 111 Blood Pressure Source [Right Arm] Automatic Cuff Blood Pressure Position [Right Arm] Sitting 02 Sat by Pulse Oximetry 97 97 97 Oxygen Delivery Method Room Air 10/17/23 15:29 Temperature 97.9 F Temperature Source Pulse Rate 73 Pulse Rate [Left] Respiratory Rate 16 Blood Pressure 129/92 H Blood Pressure [Right Arm] Blood Pressure Mean [Right Arm] Blood Pressure Source [Right Arm] Blood Pressure Position [Right Arm] 02 Sat by Pulse Oximetry Oxygen Delivery Method Room Air Lab Data Lab results reviewed: Yes I reviewed the patient's lab results. Labs: Lab Results 10/17/23 14:10: WBC 5.7, RBC 4.71, Hgb 14.9, Hct 42.2, MCV 89.6, MCH 31.7 H, MCHC 35.4, RDW 14.0, Plt Count 280, MPV 7.5, Neut % (Auto) 53.4, Lymph % (Auto) 36.8, [place] % (Auto) 4.6, Eos % (Auto) 4.0, Baso % (Auto) 1.2, Neut # (Auto) 3.1, Lymph # (Auto) 2.1, [place] # (Auto) 0.3, Eos # (Auto) 0.2, Baso # (Auto) 0.1, Sodium 141, Potassium 3.6, Chloride 110 H, Carbon Dioxide 26, Anion Gap 8.6, BUN 24 H, Creatinine 1.00, Estimated Creat Clear 120, Estimated GFR 78, Est GFR ( Amer) 94, Glucose 101 H, Calcium 9.4, Magnesium 1.9, Total Bilirubin 0.5, AST 29, ALT 24, Alkaline Phosphatase 43, Troponin I < 0.01, Total Protein 7.3, Albumin 4.1, Globulin 3.2, Albumin/Globulin Ratio 1.3, TSH 0.57 10/17/23 14:10 10/17/23 14:10 Response Orders (Tests/Meds): ED MEDICATIONS Discontinued Medications Generic Name Dose Route Start Last Admin Trade Name Freq PRN Reason Stop Dose Admin Lactated Ringer's 1,000 mls @ 999 mls/hr 10/17/23 14:16 10/17/23 14:25 Lactated Ringer's 1000 Ml Bag IV 10/17/23 15:16 999 mls/hr .Q1H1M ONE Administration ORDERS Category Date Time Status Chest XR -- portable [XR chest portable] Stat Exams 10/17/23 14:16 Completed CBC w/Auto Diff [Complete Blood Count Auto Diff] Stat Lab 10/17/23 14:10 Completed CMP [Comprehensive Metabolic Panel] Stat Lab 10/17/23 14:10 Completed Magnesium Stat Lab 10/17/23 14:10 Completed TSH [Thyroid Stimulating Hormone] Stat Lab 10/17/23 14:10 Completed Trop I [Troponin I] Stat Lab 10/17/23 14:10 Completed MDM Narrative Medical Decision Narrative: In summary patient is a 53-year-old male who presents to the emergency department for evaluation of near syncope. Patient is dynamically stable upon arrival, afebrile. Physical exam is unremarkable and nonfocal including no reproducible chest pain no dyspnea no diaphoresis. Patient does have a history of atherosclerotic cardiovascular disease and had a stress test in the last calendar year. Patient reports that his symptoms began after standing up quickly while working outside in his shop and he felt like he had a racing heart and was very lightheaded. Those symptoms resolved and he went to Dr. Crews's office for evaluation. They gave him aspirin and EMS gave him a 500 cc bolus en route to the ER. On arrival patient has no chest pain still reports feeling tightness in his chest without nausea vomiting abdominal pain chest pain.. Differential diagnosis includes ACS versus orthostatic hypotension versus vasovagal syncope etc. Initial workup will be conducted with hematologic labs chest x-ray twelve-lead EKG. Initial interventions include crystalloid bolus continuous cardiac monitoring and pulse oximetry. Initial workup reviewed by me shows that his hematologic labs are nonactionable with an undetectable troponin and twelve-lead EKG shows normal sinus rhythm without ACS pulm interpretation of his plain film chest x-ray shows no acute processes. Upon repeat evaluation patient has had no chest pain while in the ER no other recurrence of his symptoms. Given this patient has classic signs of vasovagal syndrome giving his resolution of symptoms. He is appropriate for discharge with close follow-up with cardiology. <Ezequiel Bañuelos MD - Last Filed: 10/18/23 07:02> Vital Signs Vital Signs: 10/17/23 14:15 10/17/23 14:15 10/17/23 15:00 Temperature 97.9 F Temperature Source Oral Pulse Rate 97 H 75 Pulse Rate [Left] 83 Respiratory Rate 16 14 13 Blood Pressure 146/100 H 129/92 H Blood Pressure [Right Arm] 141/96 H Blood Pressure Mean [Right Arm] 111 Blood Pressure Source [Right Arm] Automatic Cuff Blood Pressure Position [Right Arm] Sitting 02 Sat by Pulse Oximetry 97 97 97 Oxygen Delivery Method Room Air 10/17/23 15:29 Temperature 97.9 F Temperature Source Pulse Rate 73 Pulse Rate [Left] Respiratory Rate 16 Blood Pressure 129/92 H Blood Pressure [Right Arm] Blood Pressure Mean [Right Arm] Blood Pressure Source [Right Arm] Blood Pressure Position [Right Arm] 02 Sat by Pulse Oximetry Oxygen Delivery Method Room Air Lab Data Labs: Lab Results 10/17/23 14:10: WBC 5.7, RBC 4.71, Hgb 14.9, Hct 42.2, MCV 89.6, MCH 31.7 H, MCHC 35.4, RDW 14.0, Plt Count 280, MPV 7.5, Neut % (Auto) 53.4, Lymph % (Auto) 36.8, [place] % (Auto) 4.6, Eos % (Auto) 4.0, Baso % (Auto) 1.2, Neut # (Auto) 3.1, Lymph # (Auto) 2.1, [place] # (Auto) 0.3, Eos # (Auto) 0.2, Baso # (Auto) 0.1, Sodium 141, Potassium 3.6, Chloride 110 H, Carbon Dioxide 26, Anion Gap 8.6, BUN 24 H, Creatinine 1.00, Estimated Creat Clear 120, Estimated GFR 78, Est GFR ( Amer) 94, Glucose 101 H, Calcium 9.4, Magnesium 1.9, Total Bilirubin 0.5, AST 29, ALT 24, Alkaline Phosphatase 43, Troponin I < 0.01, Total Protein 7.3, Albumin 4.1, Globulin 3.2, Albumin/Globulin Ratio 1.3, TSH 0.57 Response Orders (Tests/Meds): ED MEDICATIONS Discontinued Medications Generic Name Dose Route Start Last Admin Trade Name Freq PRN Reason Stop Dose Admin Lactated Ringer's 1,000 mls @ 999 mls/hr 10/17/23 14:16 10/17/23 14:25 Lactated Ringer's 1000 Ml Bag IV 10/17/23 15:16 999 mls/hr .Q1H1M ONE Administration ORDERS Category Date Time Status Chest XR -- portable [XR chest portable] Stat Exams 10/17/23 14:16 Completed CBC w/Auto Diff [Complete Blood Count Auto Diff] Stat Lab 10/17/23 14:10 Completed CMP [Comprehensive Metabolic Panel] Stat Lab 10/17/23 14:10 Completed Magnesium Stat Lab 10/17/23 14:10 Completed TSH [Thyroid Stimulating Hormone] Stat Lab 10/17/23 14:10 Completed Trop I [Troponin I] Stat Lab 10/17/23 14:10 Completed ECG Data Tracing #1: Attestation: I reviewed this ECG and interpreted as documented below: ECG Narrative: Ventricular rate 88 beats a minute and normal sinus rhythm. ME 168, QRS 94, QTc 376. [place] normal. No ischemic change. Nonspecific T wave inversions lead III without reciprocal change. Good R wave progression in precordial leads. MDM Narrative Medical Decision Narrative: In summary patient is a 53-year-old male who presents to the emergency department for evaluation of near syncope. Patient is dynamically stable upon arrival, afebrile. Physical exam is unremarkable and nonfocal including no reproducible chest pain no dyspnea no diaphoresis. Patient does have a history of atherosclerotic cardiovascular disease and had a stress test in the last calendar year. Patient reports that his symptoms began after standing up quickly while working outside in his shop and he felt like he had a racing heart and was very lightheaded. Those symptoms resolved and he went to Dr. Crews's office for evaluation. They gave him aspirin and EMS gave him a 500 cc bolus en route to the ER. On arrival patient has no chest pain still reports feeling tightness in his chest without nausea vomiting abdominal pain chest pain. Differential diagnosis includes ACS versus orthostatic hypotension versus vasovagal syncope etc. Initial workup will be conducted with hematologic labs chest x-ray twelve-lead EKG. Initial interventions include crystalloid bolus continuous cardiac monitoring and pulse oximetry. Initial workup reviewed by me shows that his hematologic labs are nonactionable with an undetectable troponin and twelve-lead EKG shows normal sinus rhythm without ACS pulm interpretation of his plain film chest x-ray shows no acute processes. Upon repeat evaluation patient has had no chest pain while in the ER no other recurrence of his symptoms. Given this patient has classic signs of vasovagal versus orthostatic syndrome giving his resolution of symptoms. He is appropriate for discharge with close follow-up with cardiology. I was consulted by the JOSELINE, and we discussed the complexity of the problems being addressed. I approved the treatment and management plan for this patient?s care in the Emergency Department, thus performing a substantive portion of the medical decision making. Ezequiel Bañuelos MD
--- NOTE | 2023-10-17 14:12 | ECG_ITS ---
APPROVED REPORT Exam: Resting ECG HR:88 bpm ECG Measurements Heart Rate 88 AXES PA 168 P 7 QRSd 94 QRS 10 QT 330 T -11 QTc 376 Conclusion Sinus rhythm Electronically signed by : CHRISTI DAVIS, 10/18/2023 16:03:04
[2023-10-17 14:15] VITALS: BP 141/96; BP 146/100; PULSE 83; PULSE 97; RESP 14; RESP 16; TEMP 36.6; O2SAT 97; BMI 30.5
--- NOTE | 2023-10-17 14:16 | XR_ITS ---
FINAL REPORT CLINICAL HISTORY: Near syncope FINDINGS: A single portable view of the chest was obtained. The heart size and pulmonary vascularity are within normal limits. The mediastinum is within normal limits. There are left basilar opacities likely representing atelectasis or pneumonia. The bony thorax is intact. IMPRESSION: Left basilar opacities likely represent atelectasis or pneumonia. Reviewed, Interpreted and Dictated by Sy Oreilly III, MD Transcribed by Susan Penaloza Authenticated and [facility]
[2023-10-17 14:25] LABS: Basophils # 0.1 K/mm3 (0-0.2); Basophils % 1.2 % (0.1-2.0); Eosinophils # 0.2 K/mm3 (0.0-0.4); Hematocrit 42.2 % (42.0-52.0); Hemoglobin 14.9 g/dL (14.1-18.0); Lymphocytes # 2.1 K/mm3 (0.7-4.5); Lymphocytes % 36.8 % (10-50); Mean Corpuscular HGB Conc 35.4 g/dL (31.8-35.4); Mean Corpuscular Hemoglobin 31.7 pg (27.0-31.2); Mean Corpuscular Volume 89.6 fl (80-94); Mean Platelet Volume 7.5 fl (7.4-10.4); Monocytes # 0.3 K/mm3 (0.1-1.0); Monocytes % 4.6 % (1.7-9.3); Neutrophils # 3.1 K/mm3 (1.8-7.8); Neutrophils % 53.4 % (37.0-80.0); Platelet Count 280 K/mm3 (142-424); Red Blood Count 4.71 M/mm3 (4.60-6.20); White Blood Count 5.7 K/mm3 (4.8-10.8)
[2023-10-17] MEDS: LACTATED RINGERS 1000ML 1,000 ML 999 ML IV (14:25)
[2023-10-17 14:30] LABS: Chloride 110 mmol/L (98-107); Sodium 141 mmol/L (136-145)
[2023-10-17 14:31] LABS: Potassium 3.6 mmoL/L (3.5-5.1)
[2023-10-17 14:33] LABS: Alanine Aminotransferase 24 U/L (12-78); Albumin Level 4.1 g/dl (3.5-5.0); Albumin/Globulin Ratio 1.3 (1.1-1.8); Alkaline Phosphatase 43 U/L (38-126); Anion Gap 8.6 mEq/L (5-15); Aspartate Amino Transferase 29 U/L (17-59); Bilirubin,Total 0.5 mg/dl (0.2-1.3); Blood Urea Nitrogen 24 mg/dl (9-20); Calcium 9.4 mg/dl (8.4-10.2); Carbon Dioxide 26 mmol/L (22.0-30.0); Creatinine Clearance Estimated 120 mL/min (50-200); Estimated Glomerular Filt Rate 78 ml/min (>60); GFR (African American) 94 ML/MIN (>60); Globulin 3.2 g/dL (1.3-3.2); Glucose 101 mg/dl (74-100); Total Protein,Serum 7.3 g/dl (6.3-8.2)
[2023-10-17 14:34] LABS: Magnesium 1.9 mg/dl (1.6-2.3)
--- NOTE | 2023-10-17 14:34 | PC.NURSE ---
XR AT BEDSIDE
[2023-10-17 14:59] LABS: Troponin I < 0.01 ng/ml (0.00-0.034)
[2023-10-17 15:00] VITALS: BP 129/92; PULSE 75; RESP 13; O2SAT 97
[2023-10-17 15:04] LABS: Thyroid Stimulating Hormone 0.57 uIU/mL (0.465-4.68)
[2023-10-17 15:29] VITALS: BP 129/92; PULSE 73; RESP 16; TEMP 36.6; O2SAT 98
== END 2023-10-17 15:30 | disposition home or self-care (01) ==
PROVIDERS: Physician Assistant; Emergency Provider Emergency Medicine; PCP Family Medicine
DX: R55 Syncope and collapse (principal); R42 Dizziness and giddiness; E78.5 Hyperlipidemia, unspecified; I11.9 Hypertensive heart disease without heart failure; I25.10 Atherosclerotic heart disease of native coronary artery without angina pectoris
CPT/HCPCS: 71045; 80053; 83735; 84443; 84484; 85025; 93005; 96360; 99284; J7120

== ENCOUNTER 2024-05-18 12:21 | Outpatient (CLI) | payer MEDICARE, SELFPAY ==
[2024-05-18 19:27] LABS: Hemoglobin 14.4 g/dL (14.1-18.0); Lymphocytes # 2.4 K/mm3 (0.7-4.5); Mean Corpuscular Volume 88.2 fl (80-94); Mean Platelet Volume 8.9 fl (7.4-10.4); Monocytes # 0.4 K/mm3 (0.1-1.0); Red Cell Distribution Width 12.4 % (11.5-17.5)
[2024-05-18 19:31] LABS: Basophils % 0.3 % (0.1-2.0); Eosinophils # 0.1 K/mm3 (0.0-0.4); Eosinophils % 2.4 % (0.1-12.0); Hematocrit 41.8 % (42.0-52.0); Lymphocytes % 41.5 % (10-50); Mean Corpuscular HGB Conc 34.4 g/dL (31.8-35.4); Mean Corpuscular Hemoglobin 30.4 pg (27.0-31.2); Monocytes % 6.8 % (1.7-9.3); Neutrophils # 2.8 K/mm3 (1.8-7.8); Neutrophils % 48.7 % (37.0-80.0); Platelet Count 270 K/mm3 (142-424); Red Blood Count 4.74 M/mm3 (4.60-6.20); White Blood Count 5.7 K/mm3 (4.8-10.8)
[2024-05-18 19:48] LABS: Alanine Aminotransferase 29 U/L (12-78); Albumin Level 4.5 g/dl (3.5-5.0); Albumin/Globulin Ratio 1.9 (1.1-1.8); Alkaline Phosphatase 50 U/L (38-126); Aspartate Amino Transferase 54 U/L (17-59); Bilirubin,Total 0.6 mg/dl (0.2-1.3); Blood Urea Nitrogen 24 mg/dl (9-20); Calcium 9.8 mg/dl (8.4-10.2); Carbon Dioxide 28 mmol/L (22.0-30.0); Chloride 101 mmol/L (98-107); Chol/HDL Ratio 4.1 (1-3.5); Cholesterol 132 mg/dl (140-200); Estimated Glomerular Filt Rate 88 ml/min (>60); GFR (African American) 106 ML/MIN (>60); Globulin 2.4 g/dL (1.3-3.2); Glucose 82 mg/dl (74-100); HDL Cholesterol 32 mg/dl (40-60); Sodium 140 mmol/L (136-145); Total Protein,Serum 6.9 g/dl (6.3-8.2); Triglycerides 123 mg/dl (30-150); VLDL Cholesterol 25 mg/dL (0-40)
[2024-05-18 19:59] LABS: Direct LDL Cholesterol 65.75 mg/dL (100-129)
[2024-05-18 20:19] LABS: Prostate Specific Ag Screen 1.1 ng/ml (0.0-4.0)
== END 2024-05-18 23:59 | disposition home or self-care (01) ==
LOC: LAB.DROPOF 05-19 11:05
PROVIDERS: PCP Family Medicine; Visit Provider Family Medicine
DX: E78.5 Hyperlipidemia, unspecified (principal); I10 Essential (primary) hypertension; Z12.5 Encounter for screening for malignant neoplasm of prostate
CPT/HCPCS: 80053; 80061; 85025; G0103

== ENCOUNTER 2024-10-15 11:55 | Outpatient (CLI) | payer MEDICARE, SELFPAY ==
[2024-10-15 20:16] LABS: Cholesterol 137 mg/dl (140-200); HDL Cholesterol 39 mg/dl (40-60); Triglycerides 152 mg/dl (30-150)
--- OUTSIDE RECORDS SUMMARY | 2024-10-16 07:26 | XMS_ITS | Clinical Summary ---
Author Organization [facility] Phone Care Team Providers Care Museum Guide Name Role Phone Unavailable Unavailable Conditions or Problems No information available. Medications No information available. Medications Administered No information available. Allergies, Adverse Reactions, Alerts No information available. Results No information available. Plan of Care No information available. Procedures No information available. Vital Signs No information available. Immunizations No information available. Advance Directives No information available.
--- OUTSIDE RECORDS SUMMARY | 2024-10-16 07:26 | XMS_ITS | Encounter Summary ---
Author Organization [facility] Address [address] [place] [id number] Care Team Providers Care Car Ferry Master Name Role Phone Giancarlo Ruelas MD Primary Care Provider [phone] Heaven Hemphill MD Primary Care Provider [phone] None, None Primary Care Provider Unavailabl e Reason for Visit * Reason Comments Medications Refill Encounter Details Date Type Department Care Team (Late st Contact Info) Description 03/31/2017 Refill [facility] Physicians - Primary Care, [place] [address] [place] [address] [place] [address] Medications Refill Social History Tobacco Use Types Packs/Day Years Used Date Smoking Tobacco: Former Cigarettes Q uit: 05/29/2012 Smokeless Tobacco: Never Alcohol Use Standard Drinks/Week Comments No 0 (1 standard drink = 0.6 oz pur e alcohol) 4-5 years ago Sex and Gender Information Value Date Recorded Sex Assigned at Male 06/07/2019 9:43 PM EST Legal Sex Male 1:47 PM EDT Gender Identity Not on file Sexual Orientation Straight 06/07/2019 9: 43 PM EST documented as of this encounter Miscellaneous Notes * Telephone Encounter - Rebecca Chilel - 04/01/2017 8:08 AM EST LAST OV 12/29/2016 LAST REF 11/24/2016 #90 +2 documented in this encounter Plan of Treatment Not on file documented as of this encounter Visit Diagnoses Not on filedocumented in this encounter Care Teams Car Ferry Master Relationship Specialty Start Date End Date Giancarlo Ruelas MD PCP - General Family Medicine 09/07/13 07/04/18 Heaven Hemphill MD [address] [place] [address] [place] [address] PCP - General Internal Medicine 07/05/18 06/10/19 None, None [address] [place] [address] PCP - General 06/11/19 documented as of this encounter
--- OUTSIDE RECORDS SUMMARY | 2024-10-16 07:26 | XMS_ITS | Encounter Summary ---
Author Organization [facility] Address [address] [place] [address] Care Team Providers Care Certified Nurse Name Role Phone Heaven Hemphill MD Primary Care Provider [phone] None, None Primary Care Provider Unavailabl e Reason for Visit * Reason Comments Medications Refill Encounter Details Date Type Department Care Team (Late st Contact Info) Description 05/10/2019 Refill [facility] Physicians - Primary Care, [place] [address] [place] [address] Heaven Hemphill MD [address] [place] [address] Medications Refill Social History Tobacco Use Types [...] encounter Miscellaneous Notes * Telephone Encounter - Robina Roy, A - 05/10/2019 1:54 PM EST Requested Prescriptions Pending Prescriptions Disp Refills ??? loratadine (CLARITIN) 10 mg tablet [Pharmacy Med Name: LORATADINE 10 MG TABLET] 30 Tab 5 Sig: TAKE 1 TABLET BY MOUTH EVERY DAY Last appt and type- 11/30/18 for MPE Next appt and type- 06/08/19 for 6 month check Pending labs on file- Yes documented in this encounter Plan of Treatment Not on file documented as of this encounter Visit Diagnoses Diagnosis Long-term use of high-risk medication Chronic back pain, unspecified back location, unspecified back pain laterality Bipolar affective disorder, remission status unspecified ([facility]) Hypertriglyceridemia Pure hyperglyceridemia Hyperlipidemia, unspecified hyperlipidemia type Screening PSA (prostate specific antigen) Special screening for malignant neoplasm of prostate Encounter for screening colonoscopy Special screening for malignant neoplasms, colon Dysphagia, unspecified type Medicare annual wellness visit, subsequent Routine general medical examination at a health care facility Benign prostatic hyperplasia with urinary hesitancy documented in this encounter Care Teams Certified Nurse Relationship Specialty Start Date End Date Heaven Hemphill MD [address] [place] [address] PCP - General Internal Medicine 07/05/18 06/10/19 None, None [address] [place] [address] PCP - General 06/11/19 documented as of this encounter
--- OUTSIDE RECORDS SUMMARY | 2024-10-16 07:26 | XMS_ITS | Encounter Summary ---
Author Organization [facility] Address [address] [place] [address] Care Team Providers Care Drawing Operator Name Role Phone None, None Primary Care Provider Unavailabl e Reason for Visit * Reason Comments Medications Refill Encounter Details Date Type Department Care Team (Late st Contact Info) Description 08/07/2019 Refill [facility] Physicians - Primary Care, [place] [address] [place] [address] Heaven Hemphill MD [address] [facility] [place] [address] Medications Refill Social History Tobacco Use Types [...] PM EST documented as of this encounter Plan of Treatment Not on file documented as of this encounter Visit Diagnoses Not on filedocumented in this encounter Care Teams Drawing Operator Relationship Specialty Start Date End Date None, None [address] [facility] [place] [address] PCP - General 06/11/19 documented as of this encounter
--- OUTSIDE RECORDS SUMMARY | 2024-10-16 07:26 | XMS_ITS | Clinical Summary ---
Author Organization [facility] Address [address] [place] [id number] Care Team Providers Care Tag Marker Name Role Phone None, None Primary Care Provider Unavailabl e Allergies Active Allergy Reactions Criticality Noted Date Comments Diclofenac 12/07/2013 Mood changes, constipation Quetiapine Medium 10/26/2013 Increase restless leg pain Pseudoephedrine Hcl Medium 10/26/2013 Increases restless leg pain Medications tamsulosin (FLOMAX) 0.4 mg sustained release capsuleIndications: Benign prostatic hyperplasia with urinary hesitancy TAKE 1 CAPSULE BY MOUTH EVERYDAY AT BEDTIME 90 Cap 1 0 Active traZODone (DESYREL) 100 mg tabletIndications:L caroline-term use of high-risk medication,Bipolar affective disorder, remission status unspecified ([facility]),Chronic back pain, unspecified back location, unspecified back pain laterality,Hypertri glyceridemia,Hyperl ipidemia, unspecified hyperlipidemia type,Screening PSA (prostate specific antigen),Encounter for screening colonoscopy,Dysphag ia, unspecified type,Medicare annual wellness visit, subsequent,Benign prostatic hyperplasia with urinary hesitancy TAKE 1 TABLET BY MOUTH EVERYDAY AT BEDTIME 90 Tab 3 0 Active loratadine (CLARITIN) 10 mg tabletIndications:L caroline-term use of high-risk medication,Chronic back pain, unspecified back location, unspecified back pain laterality,Bipolar affective disorder, remission status unspecified ([facility]),Hypertriglycer idemia,Hyperlipidem ia, unspecified hyperlipidemia type,Screening PSA (prostate specific antigen),Encounter for screening colonoscopy,Dysphag ia, unspecified type,Medicare annual wellness visit, subsequent,Benign prostatic hyperplasia with urinary hesitancy TAKE 1 TABLET BY MOUTH EVERY DAY 30 Tab 11 0 Active FLUoxetine (PROZAC) 40 mg capsuleIndications: Bipolar affective disorder, remission status unspecified ([facility]) TAKE 1 CAPSULE BY MOUTH EVERY DAY 90 Cap 1 0 Active bupropion XL (WELLBUTRIN XL) 150 mg tabletIndications:L caroline-term use of high-risk medication,Bipolar affective disorder, remission status unspecified ([facility]) TAKE 1 TABLET BY MOUTH EVERY DAY 90 Tab 1 0 Active traMADoL (ULTRAM) 50 mg tablet Take 50 mg by mouth every 6 hours as needed for Pain. Active ibuprofen (MOTRIN) 600 mg tablet Take 1 Tab (600 mg total) by mouth 3 times daily as needed for Pain. 90 Tab 5 0 Active methocarbamoL (ROBAXIN) 750 mg tablet Take 1 Tab (750 mg total) by mouth 3 times daily. 90 Tab 5 0 Active lovastatin (MEVACOR) 40 mg tabletIndications:C hronic back pain, unspecified back location, unspecified back pain laterality Take 1 Tab by mouth daily. 90 Tab 1 0 Active Active Problems Problem Noted Date Diagnosed Date Primary insomnia 06/08/2019 BPH (benign prostatic hyperplasia) 06/08/2019 History of colonoscopy 11/30/2018 Overview (11/30/2018): Dr Khan 04/2018 4 polyps, repeat 3 yrs Schatzki's ring 11/30/2018 Hyperlipidemia, unspecified hyperlipidemia type 08/25/2016 Hypertriglyceridemia 03/13/2014 Chronic back pain Bipolar affective disorder ([facility]) Herniated disc Resolved Problems Problem Noted Date Diagnosed Date Resolved Date Mental health disorder 04/29/201111/30 Immunizations Immunization Administration Dates Next Due Influenza 01/20/2018 Family History Relation Name Status Comments Father Alive Mother Alive Social History Tobacco Use Types Packs/Day Years Used Date Smoking Tobacco: Former Cigarettes Q uit: 05/29/2012 Smokeless Tobacco: Never Tobacco Cessation:Counseling Given: No Alcohol Use Standard Drinks/Week Comments No 0 (1 standard drink = 0.6 oz pur e alcohol) 4-5 years ago Sex and Gender Information Value Date Recorded Sex Assigned at Male 06/07/2019 9:43 PM EST Legal Sex Male 1:47 PM EDT Gender Identity Not on file Sexual Orientation Straight 06/07/2019 9: 43 PM EST Last Filed Vital Signs Vital Sign Reading Time Taken Comments Blood Pressure 128/72 06/08/2019 11:07 AM EST Pulse 94 06/08/2019 11:07 AM EST Temperature 36.4 C (97.6 F) 05/31/2018 12:15 PM EST Respiratory Rate 16 03/01/2017 10:05 PM EST Oxygen Saturation 96% 06/08/2019 11:07 AM EST Inhaled Oxygen Concentration - - Weight 98 kg (216 lb) 06/08/2019 11:07 AM EST Height 182.9 cm (6') 06/08/2019 11:07 AM EST Body Mass Index 29.29 06/08/2019 11:07 AM EST Plan of Treatment Health Maintenance Due Date Last Done Comments Cologuard 1968 FIT 1968 Tetanus Vaccination (Every 1 0 Years) 1986 Pneumococcal Vaccine: 50+ Ye ars (1 of 1 - PCV) 2018 Zoster-RZV(Shingrix) (1 of 2) 2018 COVID-19 Vaccine ( - 2023-2 5 season) 2023 Depression Screening 04/11/2024 Lipid Screening 06/08/2024 06/08/2019, 11/10, 05/31/2018, Additional history exists Influenza Vaccination (#1) 2024 01/20/2018 Colonoscopy 04/14/2028 04/14/2018 Colorectal Cancer Screening 04/14/2028 Influenza Vaccination (Yearly) Discontinued 1 , 08/25/2016 (Patient/Parent/Guardian Counseled and Declines) Procedures Procedure Name Priority Date/Time Associated Diagnosis Comments LIPID PROFILE Routine 06/08/2019 11:55 AM EST Hypertriglyceridemia Hyperlipidemia, unspecified hyperlipidemia type EXTERNAL COLONOSCOPY - SEE COMMENT Routine 04/14/2018 from Last 3 Months or Most Recently Relevant to Health Maintenance Results * (ABNORMAL) LIPID PROFILE (06/08/2019 11:55 AM EST) Chol/HDL Ratio 4.9 0 - 5 [facility] Cholesterol 226(H) 125 - 199 mg/dL [facility] EXTERNAL [facility] Comment: TOTAL CHOLESTEROL INTERPRETATION: Less than 200 mg/dL Desireable 200-239 mg/dL Borderline Greater or Equal to 240 mg/dL High LDL Calculated 140(H) 0 - 100 mg/dL [facility] EXTERNAL [facility] Comment: LDL CHOLESTEROL INTERPRETATION: Less than 100 mg/dL Optimal 100-129 mg/dL Near optimal/above optimal 130-159 mg/dL Borderline High 160-189 mg/dL High Greater or Equal to 190 mg/dL Very High HDL 46 40 - 180 mg/dL [facility] EXTERNAL [facility] Comment: HDL CHOLESTEROL INTERPRETATION: Less than 40 mg/dL Low Greater than 60 mg/dL Desirable Triglycerides 199(H) 0 - 150 mg/dL [facility] Comment: TOTAL TRIGLYCERIDE INTERPRETATION: Less than 150 mg/dL Normal 150-199 mg/dL Borderline HIgh 200-499 mg/dL High Greater or Equal to 500 mg/dL Very High Serum (Serum) 06/08/2019 11: 55 AM EST 06/08/2019 7:41 PM EST us Heaven Hemphill MD CHEMISTRY ORDERABLES Final Result Performing Organization Address [facility]/ZIP Co de Phone Number [facility] [address] [place] [address] * EXTERNAL COLONOSCOPY - SEE COMMENT (04/14/2018) us Historical Provider [place] [facility] Final Result Performing Organization Address [facility] Co de Phone Number [facility] [place] [address] from Last 3 Months or Most Recently Relevant to Health Maintenance Insurance [facility] MEDICARE [facility] MED[facility] Care Teams Tag Marker Relationship Specialty Start Date End Date None, None [address] [place] [address] PCP - General 06/11/19
--- OUTSIDE RECORDS SUMMARY | 2024-10-16 07:26 | XMS_ITS | Encounter Summary ---
Author Organization [facility] Address [address] [place] [address] Care Team Providers Care Ingot Passer Name Role Phone Giancarlo Ruelas MD Primary Care Provider [phone] Heaven Hemphill MD Primary Care Provider [phone] None, None Primary Care Provider Unavailabl e Reason for Visit * Reason Comments Medications Refill Encounter Details Date Type Department Care Team (Late st Contact Info) Description 11/17/2016 Refill [facility] Physicians - Primary Care, [place] [address] [place] [address] Dolores Livingston, PLASTER MOLDER [address] [facility] [place] [address] [place] [address] Medications Refill Social History Tobacco Use Types Packs/Day Years Used Date Smoking Tobacco: Former Cigarettes Q uit: 05/29/2012 Smokeless Tobacco: Never Alcohol Use Standard Drinks/Week Comments No 0 (1 standard drink = 0.6 oz pur e alcohol) Sex and Gender Information Value Date Recorded Sex Assigned at Male 06/07/2019 9:43 PM EST Legal Sex Male 1:47 PM EDT Gender Identity Not on file Sexual Orientation Straight 06/07/2019 9: 43 PM EST documented as of this encounter Miscellaneous Notes * Telephone Encounter - Rebecca Chilel - 11/18/2016 2:24 PM EDT PHONED IN GABAPENTIN TO LOCAL PHARMACY PER MD * Telephone Encounter - Sultana Edwards - 11/18/2016 10:18 AM EDT Sebastian 10/1016 Narcotic agreement signed on 0 Last refill date Last check up date Next appt is12/29 Last UDS documented in this encounter Plan of Treatment Not on file documented as of this encounter Visit Diagnoses Not on filedocumented in this encounter Care Teams Ingot Passer Relationship Specialty Start Date End Date Giancarlo Ruelas MD PCP - General Family Medicine 09/07/13 07/04/18 Heaven Hemphill MD [address] [place] [address] [place] [address] PCP - General Internal Medicine 07/05/18 06/10/19 None, None [address] [place] [address] PCP - General 06/11/19 documented as of this encounter
--- OUTSIDE RECORDS SUMMARY | 2024-10-16 07:26 | XMS_ITS | Continuity of Care Document ---
Author Organization [facility] Address [address] [place] [address] Phone Care Team Providers Care Web Applications Developer Name Role Phone Unavailable Primary Care Provider Unavailabl e Encounters Date Type Department Care Team Description 12/19/2020 Travel 12/19/2020 11:00 AM EDT - 12/19/2020 11:59 PM EDT Hospital Encounter [facility] [address] [id number] COVID (Primary Dx) Discharge Disposition: Home or Self Care 12/16/2020 Orders Only [facility] [address] [place] [address] Aleah Hilton, [facility] COVID 12/16/2020 1:15 PM EDT - 12/16/2020 5:[address] [facility] [place] [address] Adonis Watts MD COVID (Primary Dx); Generalized weakness; Cough Discharge Disposition: Home or Self Care 05/10/2019 Refill [facility] [address] [place] [phone] Scott Whelan MD Medication Refill 11/19/2013 4:15 PM EDT Office Visit [facility] [address] [place] [phone] Jasen Phipps, DPM Plantar fascial fibromatosis (Primary Dx); Difficulty in walking(829.7) 11/02/2013 11:54 AM EDT - 11/02/2013 11:59 PM EDT Hospital Encounter [facility] [address] [address] Giancarlo Ruelas MD Backache, unspecified; Other chronic pain; Displacement of intervertebral disc, site unspecified, without myelopathy Discharge Disposition: Home or Self Care 04/29/2011 9:00 AM EST Office Visit [facility] [address] [place] [address] [place] [phone] Madeline Catalan MD Mental health disorder; Back pain; URI, acute; Sinusitis acute; SOB (shortness of breath); Past heart attack 05/02/2008 4:50 PM EST - 05/02/2008 11:59 PM EST Hospital Encounter [facility] Giancarlo Ruelas MD 12/09/2006 12:10 PM EDT - 12/09/2006 11:59 PM EDT Hospital Encounter [facility] [address] 06/13/2006 7:37 PM EST - 06/13/2006 9:49 PM EST Emergency [facility] E/D ANASTASIA EDG Scott Cortez MD 04/12/2006 7:20 PM EST - 04/14/2006 12:28 PM EST Hospital Encounter [facility] BH[facility] Vega Hernandez MD 03/21/2006 5:12 PM EST - 03/21/2006 8:36 PM EST Emergency [facility] E/D MELLO EDG Malachi Beck MD 05/26/2004 5:22 PM EST - 05/29/2004 4:11 PM EST Hospital Encounter [facility] Generic, Historical Provider 05/26/2004 3:35 PM EST - 05/26/2004 6:00 PM EST Emergency [facility]GENCY [facility] Generic, Historical Provider 12/25/2003 4:41 PM EDT - 12/26/2003 4:00 PM EDT Hospital Encounter [facility] E3S [facility] Generic, Historical Provider 01/12/2002 10:55 PM EDT - 01/13/2002 1:25 AM EDT Emergency [facility] UNKNFTT Generic, Historical Provider 12/17/2001 10:48 AM EDT - 12/17/2001 12:40 PM EDT Emergency [facility] EMERGENCY [facility] Generic, Historical Provider 04/28/2000 4:36 AM EST - 04/29/2000 5:55 PM EST Hospital Encounter [facility] E3S [facility] Generic, Historical Provider 10/16/1996 2:33 PM EDT - 10/16/1996 11:59 PM EDT Hospital Encounter [facility] Alexandru, Lab [facility] 09/26/1992 9:31 PM EDT - 09/26/1992 11:59 PM EDT Emergency [facility] EPIC CON UNK EDG Dick Gates DO 02/22/1991 3:49 PM EST - 02/22/1991 11:59 PM EST Emergency [facility] EPIC CON UNK EDG Dick Nguyen DO Allergies No known active allergies Medications methocarbamol (ROBAXIN) 750 mg Take 750 mg by mouth every 4 hours. Active gabapentin (NEURONTIN) 300 mg capsule Take by mouth 3 times daily. Active traZODone (DESYREL) 100 mg tablet Take 100 mg by mouth nightly. Active diclofenac (VOLTAREN) 75 mg EC tabletIndication s:Plantar fascial fibromatosis,Dif ficulty in walking(719.7) Take 1 tablet by mouth 2 times daily (with meals). 60 tablet 2 11/19/2013 Active Active Problems Problem Noted Date Diagnosed Date COVID 12/16/2020 Mental health disorder 04/29/2011 Back pain 04/29/2011 URI, acute 04/29/2011 Family History Medical History Relation Name Comments Hypertension Father Mental Illness Mother Thyroid Disease Mother Relation Name Status Comments Father Alive Mother Alive Social History Smoking Status as of 10/16/2024 Tobacco Use Types Packs/Day Years Used Date Smoking Tobacco: Never Assessed Sex and Gender Information Value Date Recorded Sex Assigned at Not on file Legal Sex Male 2:27 PM EDT Gender Identity Not on file Sexual Orientation Not on file Last Filed Vital Signs Vital Sign Reading Time Taken Comments Blood Pressure 122/79 12/19/2020 12:19 PM EDT Pulse 75 12/19/2020 12:19 PM EDT Temperature 36.6 C (97.9 F) 12/19/2020 11:34 AM EDT Respiratory Rate 18 12/19/2020 12:19 PM EDT Oxygen Saturation 99% 12/19/2020 12:19 PM EDT Inhaled Oxygen Concentration - - Weight 93.4 kg (206 lb) 12/19/2020 11:34 AM EDT Height 182.9 cm (6') 11/19/2013 4:30 PM EDT Body Mass Index 27.94 11/19/2013 4:30 PM EDT Plan of Treatment Not on file Procedures Procedure Name Priority Date/Time Associated Diagnosis Comments SCANNED EKG 12/17/2020 10:04 AM EDT XR CHEST AP PORTABLE KATARZYNA 12/16/2020 3:05 PM EDT TROPONIN-T HIGH SENSITIVITY BASELINE W/ REFLEX STAT 12/16/2020 2:05 PM EDT BASIC METABOLIC PANEL STAT 12/16/2020 2:05 PM EDT CBC STAT 12/16/2020 2:05 PM EDT EK EKG 12 LEAD STAT 12/16/2020 1:45 PM EDT CORONAVIRUS 2019 Routine 12/16/2020 1:35 PM EDT MRI LUMBAR SPINE WO CONTRAST Routine 11/02/2013 1:00 PM EDT Backache, unspecified Other chronic pain Displacement of intervertebral disc, site unspecified, without myelopathy Results * SCANNED EKG (12/17/2020 10:04 AM EDT) Anatomical Region Laterality Modality Other 12/17/2020 10:0 4 AM EDT us Unknown Provider IMG ECG ORDERABLES Final Result * XR CHEST AP PORTABLE (12/16/2020 3:05 PM EDT) Anatomical Region Laterality Modality Chest Radiographic Irina ging 12/16/2020 3:05 PM EDT Impressions 12/16/2020 3:10 PM EDT Bilateral lower lobe infiltrates consistent with pneumonia. - Note: Radiology results need to be interpreted within a comprehensive clinical context. If you have questions about the radiology report, please contact the office of the ordering clinician. Narrative 12/16/2020 3:10 PM EDT XR CHEST AP PORTABLE, 12/16/2020 3:05 PM CLINICAL HISTORY: -WEAKNESS COMPARISON: None. PROCEDURE COMMENTS: AP portable technique. FINDINGS: Heart size is normal. Aorta is tortuous. There is bilateral lower lobe infiltrate present. No effusion or pneumothorax. Procedure Note Jermaine Carrillo MD - 12/16/2020 XR CHEST AP PORTABLE, 12/16/2020 3:05 PM CLINICAL HISTORY: -WEAKNESS COMPARISON: None. PROCEDURE COMMENTS: AP portable technique. FINDINGS: Heart size is normal. Aorta is tortuous. There is bilateral lower lobe infiltrate present. No effusion orpneumothorax. IMPRESSION: Bilateral lower lobe infiltrates consistent with pneumonia. - Note: Radiology results need to be interpreted within a comprehensiveclinical context. If you have questions about the radiology report, please contactthe office of the ordering clinician. Adonis Watts MD IM DIAGNOSTIC IMAGING ORDERABLES Final Result * TROPONIN-T HIGH SENSITIVITY BASELINE W/ REFLEX (12/16/2020 2:05 PM EDT) qa-qYiwoormu-F <6 <22 ng/L 12/16/2020 2:24 PM EDT [facility] Comment:See the website [employer] for rule out [place] care pathway, conditions other than AMI that can cause elevated hs cTnT, and comparison of values from the 4th and 5th generation Dayron tests. https://askmayoexpert.[email or web address].[email or web address]/topic/clinical-answers/gnt-[email or web address]/cpm-[email or web address] 17631 Blood VENOUS BLOOD / Unknown Venipuncture / Unknown 12/16/2020 2:05 PM EDT 12/16/2020 2:06 PM EDT Narrative [facility] - 12/16/2020 2:24 PM EDT Ingestion of armando doses of biotin (>5 mg/day) taken within 8 hours of drawing blood sample can interfere with this immunoassay test. us Adonis Watts MD CHEMISTRY ORDERABLES Fi nal Result Performing Organization Address [facility]/ZIP Co de Phone Number [facility] [address] [place] [address] * (ABNORMAL) CBC (12/16/2020 2:05 PM EDT) WBC 3.6(L) 3.7 - 10.3 x10(3)/mcL 12/16/2020 2:11 PM EDT [facility] RBC 4.66 4.60 - 6.10 x10(6)/mcL 12/16/2020 2:11 PM EDT [facility] Hgb 14.4 13.7 - 17.5 g/dL 12/16/2020 2:11 PM EDT [facility] Hct 41.3 40.0 - 51.0 % 12/16/2020 2:11 PM EDT [facility] MCV 88.6 80.0 - 100.0 fL 12/16/2020 2:11 PM EDT [facility] MCH 30.9 26.0 - 34.0 pg 12/16/2020 2:11 PM EDT [facility] MCHC 34.9 30.7 - 35.5 g/dL 12/16/2020 2:11 PM EDT [facility] RDW 12.6 <=14.9 % 12/16/2020 2:11 PM EDT [facility] Platelet 132(L) 155 - 369 x10(3)/mcL 12/16/2020 2:11 PM EDT [facility] MPV 9.4 8.8 - 12.5 fL 12/16/2020 2:11 PM EDT [facility] Blood VENOUS BLOOD / Unknown Venipuncture / Unknown 12/16/2020 2:05 PM EDT 12/16/2020 2:06 PM EDT us Adonis Watts MD HEMATOLOGY ORDERABLES F inal Result Performing Organization Address City/[facility]/ZIP Co de Phone Number [facility] [address] [place] [address] * BASIC METABOLIC PANEL (12/16/2020 2:05 PM EDT) Sodium 136 136 - 145 mmol/L 12/16/2020 2:22 PM EDT [facility] Potassium 3.5 3.5 - 5.0 mmol/L 12/16/2020 2:22 PM EDT [facility] Chloride 99 98 - 107 mmol/L 12/16/2020 2:22 PM EDT [facility] Total CO2 25 22 - 29 mmol/L 12/16/2020 2:22 PM EDT [facility] Anion Gap 12 7 - 16 mmol/L 12/16/2020 2:22 PM EDT [facility] Calcium 8.7 8.6 - 10.4 mg/dL 12/16/2020 2:22 PM EDT [facility] Glucose Lvl 84 74 - 100 mg/dL 12/16/2020 2:22 PM EDT [facility] BUN 18 6 - 20 mg/dL 12/16/2020 2:22 PM EDT [facility] Creatinine 1.01 0.67 - 1.30 mg/dL 12/16/2020 2:22 PM EDT [facility] GFR Afr Am 98 >=60 mL/min/1.7 3 m2 12/16/2020 2:22 PM EDT [facility] GFR Non Afr Am 85 >=60 mL/min/1.7 3 m2 12/16/2020 2:22 PM EDT [facility] Comment: This estimated GFR was calculated using CKD-EPI equation which is modified based on ethnicity for Non Americans and Americans. Both results are reported since it is not always possible to determine the patient's ethnicity. This equation should only be used for individuals 18 and older. It has not been validated for use with the elderly (>70 years), women, or in some racial or ethnic subgroups, such as Hispanics. The equation will be less accurate in people with differences in nutritional status or muscle mass. 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1970 Requested By: ADONIS Horton Order Number: [id number] Reading MD: Ishan Gonzalez MD Measurements Intervals [place] Rate: 67 P: 8 MT: 154 QRS: 17 QRSD: 94 T: 3 QT: 379 QTc: 402 Interpretive Statements SINUS RHYTHM Electronically Signed On 12-16-2020 14:16:45 EDT by Ishan Gonzalez MD Narrative Procedure Note Ishan Gonzalez MD - 12/16/2020 IMPRESSION [place] Test Date: 2020-12-16 Pat Name: [facility] Department: DEPID Room: 35 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1970 Requested By: ADONIS KENT Order Number: [id number] [place] MD: Ishan Gonzalez MD Measurements Intervals [place] Rate: 67 P: 8 MT: 154 QRS: 17 QRSD: 94 T: 3 QT: 379 QTc: 402 Interpretive Statements SINUS RHYTHM Electronically Signed On 12-16-2020 14:16:45 EDT by Ishan Gonzalez MD us Adonis Watts MD IMG ECG ORDERABLES Anais l Result * (ABNORMAL) CORONAVIRUS 2019 (12/16/2020 1:35 PM EDT) CORONAVIRUS [id number] Detected( A) Not Detected 12/16/2020 2:22 PM EDT [facility] Comment: This test is a real-time RT-PCR test intended for the qualitative detection of nucleic acid from the SARS-CoV-2 in upper respiratory samples collected from individuals suspected of COVID-19. Not Detected results do not preclude COVID-19 or other respiratory viruses and should not be used as the sole basis for treatment or other patient management decisions. RASHID Fact Sheet for Providers and Patients: RASHID Fact Sheet for Providers: https://www.fda.gov/media/307337/download RASHID Fact Sheet for Patients: https://www.fda.gov/media/813557/download Test is performed on the [employer] RASHID platform under the FDA's Emergency Use Authorization (EUA). Performed at [address] [address] CLIA [id number] Swab BOTH ANTERIOR NARES / Unknown 12/16/2020 1:35 PM EDT 12/16/2020 1:42 PM EDT Adonis Watts MD MICROBIOLOGY - GENERAL ORDERABLES Final Result [facility] [address] [place] [address] * MRI LUMBAR SPINE WO CONTRAST (11/02/2013 1:00 PM EDT) Anatomical Region Laterality Modality L-spine Magnetic Resonan ce 11/02/2013 11:5 4 AM EDT Impressions 11/02/2013 1:22 PM EDT IMPRESSION: Disc protrusion L4-L5 with annular tear and mild extension into the foramina with mild foraminal narrowing. Mild disc bulge L5-S1. Normal alignment. Normal conus. Narrative 11/02/2013 1:22 PM EDT MRI LUMBAR SPINE WO CONTRAST Nov 02, 2013 01:00:36 PM HISTORY: 724.5-Backache, [id number] Alignment is normal. Marrow signal is normal. Conus and cauda equina are normal. Intervertebral discs are abnormal L4-L5 and L5-S1. At L4-L5 there is a protrusion associated annular tear. There is mild mass effect on the thecal sac. This is relatively broad-based a with some extension into the foramina and mild foraminal narrowing. There is no high-grade foraminal narrowing or canal stenosis. At L5-S1 there is degeneration of the disc. There is mild disc bulge. There is no canal stenosis or foraminal narrowing. Procedure Note Lamont Edwards MD - 11/02/2013 MRI LUMBAR SPINE WO CONTRAST Nov 02, 2013 01:00:36 PM HISTORY: 724.5-Backache, [id number]-6-CM Alignment is normal. Marrow signal is normal. Conus and cauda equina arenormal. Intervertebral discs are abnormal L4-L5 and L5-S1. At L4-L5 there is aprotrusion associated annular tear. There is mild mass effect on the thecal sac. This isrelatively broad-based a with some extension into the foramina and mild foraminal narrowing. Thereis no high-grade foraminal narrowing or canal stenosis. At L5-S1 there is degeneration of the disc. There is mild disc bulge.There is no canal stenosis or foraminal narrowing. IMPRESSION: Disc protrusion L4-L5 with annular tear and mild extensioninto the foramina with mild foraminal narrowing. Mild disc bulge L5-S1. Normal alignment. Normal conus. Giancarlo Ruelas MD IM MRI ORDERABLES Final Result Visit Diagnoses Diagnosis Start Date Mental health disorder Unspecified nonpsychotic mental disorder 04/29/2011 Back pain Backache, unspecified 04/29/2011 URI, acute Acute upper respiratory infections of unspecified site 04/29/2011 Sinusitis acute Acute sinusitis, unspecified 04/29/2011 SOB (shortness of breath) Shortness of breath 04/29/2011 Past heart attack Old myocardial infarction 04/29/2011 Backache, unspecified 11/02/2013 Other chronic pain 11/02/2013 Displacement of intervertebral disc, site unspecified, without myelopathy 11/02/2013 Plantar fascial fibromatosis 11/19/2013 Difficulty in walking(719.7) Difficulty in walking 11/19/2013 COVID 12/16/2020 COVID 12/16/2020 Generalized weakness Other malaise and fatigue 12/16/2020 Cough 12/16/2020 COVID 12/19/2020
--- OUTSIDE RECORDS SUMMARY | 2024-10-16 07:26 | XMS_ITS | Encounter Summary ---
Author Organization [facility] Address [address] [place] [address] Care Team Providers Care Claim Service Representative Name Role Phone Heaven Hemhpill MD Primary Care Provider [phone] None, None Primary Care Provider Unavailabl e Reason for Visit * Reason Comments Medications Refill Encounter Details Date Type Department Care Team (Late st Contact Info) Description 05/05/2019 Refill [facility] Physicians - Primary Care, [place] [address] [place] [address] Heaven Hemphill MD [address] [place] [address] Medications Refill Social History Tobacco Use Types [...] Telephone Encounter - Robina Roy, A - 05/07/2019 8:22 AM EST Requested Prescriptions Pending Prescriptions Disp Refills ??? traZODone (DESYREL) 100 mg tablet [Pharmacy Med Name: TRAZODONE 100 MG TABLET] 90 Tab 1 Sig: TAKE 1 TABLET BY MOUTH EVERYDAY AT BEDTIME Last appt and type- 11/30/18 for MPE Next appt and type- 06/08/19 for 6 month check Pending labs on file- Yes documented in this encounter Plan of Treatment Not on file documented as of this encounter Visit Diagnoses Diagnosis Long-term use of high-risk medication Bipolar affective disorder, remission status unspecified ([facility]) Chronic back pain, unspecified back location, unspecified back pain laterality Hypertriglyceridemia Pure hyperglyceridemia Hyperlipidemia, unspecified hyperlipidemia type Screening PSA (prostate specific antigen) Special screening for malignant neoplasm of prostate Encounter for screening colonoscopy Special screening for malignant neoplasms, colon Dysphagia, unspecified type Medicare annual wellness visit, subsequent Routine general medical examination at a health care facility Benign prostatic hyperplasia with urinary hesitancy documented in this encounter Care Teams Claim Service Representative Relationship Specialty Start Date End Date Heaven Hemphill MD [facility] [place] [address] PCP - General Internal Medicine 07/05/18 06/10/19 None, None [address] [place] [address] PCP - General 06/11/19 documented as of this encounter
--- OUTSIDE RECORDS SUMMARY | 2024-10-16 07:26 | XMS_ITS | Encounter Summary ---
Author Organization [facility] Address [address] [place] [address] Care Team Providers Care Nutrition Instructor Name Role Phone Giancarlo Ruelas MD Primary Care Provider [phone] Heaven Hemphill MD Primary Care Provider [phone] None, None Primary Care Provider Unavailabl e Reason for Visit * Reason Comments Medications Refill Encounter Details Date Type Department Care Team (Late st Contact Info) Description 10/18/2016 Refill [facility] Physicians - Primary Care, [place] [address] [place] [address] [place] [address] Medications Refill Social History Tobacco [...] * Telephone Encounter - Rebecca Chilel - 10/18/2016 7:02 PM EDT Phoned in gabapentin to local pharmacy Per BT * Telephone Encounter - Dolores Livingston APRN - 10/18/2016 7:00 PM EDT OK to call in x 1 alycia fine * Telephone Encounter - Rebecca Chilel - 10/18/2016 6:46 PM EDT LAST OV 08/25/2016 LAST REF 06/25/2016 +3 REF documented in this encounter Plan of Treatment Not on file documented as of this encounter Visit Diagnoses Not on filedocumented in this encounter Care Teams Nutrition Instructor Relationship Specialty Start Date End Date Giancarlo Ruelas MD PCP - General Family Medicine 09/07/13 07/04/18 Heaven Hemphill MD [address] [place] [address] PCP - General Internal Medicine 07/05/18 06/10/19 None, None [address] [facility] [place] [address] PCP - General 06/11/19 documented as of this encounter
== END 2024-10-15 23:59 | disposition home or self-care (01) ==
LOC: LAB.DROPOF 10-16 07:24
PROVIDERS: PCP Family Medicine; Visit Provider Family Medicine
DX: E78.5 Hyperlipidemia, unspecified (principal)
CPT/HCPCS: 80061

== ENCOUNTER 2025-01-18 10:36 | Outpatient (CLI) | payer MEDICARE, SELFPAY ==
[2025-01-18 22:27] LABS: Alanine Aminotransferase 25 U/L (12-78); Albumin Level 3.9 g/dl (3.5-5.0); Albumin/Globulin Ratio 1.5 (1.1-1.8); Alkaline Phosphatase 58 U/L (38-126); Anion Gap 12.9 mEq/L (5-15); Aspartate Amino Transferase 28 U/L (17-59); Bilirubin,Total 0.9 mg/dl (0.2-1.3); Blood Urea Nitrogen 17 mg/dl (9-20); Calcium 9.5 mg/dl (8.4-10.2); Carbon Dioxide 28 mmol/L (22.0-30.0); Chloride 102 mmol/L (98-107); Creatinine,Serum 0.90 mg/dl (0.66-1.25); Estimated Glomerular Filt Rate 87 ml/min (>60); GFR (African American) 106 ML/MIN (>60); Globulin 2.6 g/dL (1.3-3.2); Glucose 91 mg/dl (74-100); Potassium 3.9 mmoL/L (3.5-5.1); Sodium 139 mmol/L (136-145); Total Protein,Serum 6.5 g/dl (6.3-8.2)
[2025-01-18 22:58] LABS: Thyroid Stimulating Hormone 0.85 uIU/mL (0.465-4.68)
--- OUTSIDE RECORDS SUMMARY | 2025-01-21 10:49 | XMS_ITS | Clinical Summary ---
Author Organization [facility] Phone Care Team Providers Care Tube Roller Name Role Phone Unavailable Unavailable Conditions or Problems No information available. Medications No information available. Medications Administered No information available. Allergies, Adverse Reactions, Alerts No information available. Results No information available. Plan of Care No information available. Procedures No information available. Vital Signs No information available. Immunizations No information available. Advance Directives No information available.
--- OUTSIDE RECORDS SUMMARY | 2025-01-21 10:52 | XMS_ITS | Encounter Summary ---
Author Organization [facility] Address [address] [place] [address] Care Team Providers Care Information Systems Analyst Name Role Phone None, None Primary Care Provider Unavailabl e Reason for Visit * Reason Comments Medications Refill Encounter Details Date Type Department Care Team (Late st Contact Info) Description 08/07/[address] [facility] Physicians - Primary Care, [place] [address] [place] [address] Heaven Hemphill MD [address] [facility] [place] [address] Medications Refill Social History Tobacco Use Types [...] on filedocumented in this encounter Care Teams Information Systems Analyst Relationship Specialty Start Date End Date None, None [address] [facility] [place] [address] PCP - General 06/11/19 documented as of this encounter
--- OUTSIDE RECORDS SUMMARY | 2025-01-21 10:52 | XMS_ITS | Continuity of Care Document ---
Author Organization [facility] Address [address] [place] [address] Phone Care Team Providers Care Wool And Pelt Grader Name Role Phone Unavailable Primary Care Provider Unavailabl e Encounters Date Type Department Care Team Description 12/19/2020 Travel 12/19/2020 11:00 AM EDT - 12/19/2020 11:59 PM EDT Hospital Encounter [facility] [address] [id number] COVID (Primary Dx) Discharge Disposition: Home or Self Care 12/16/2020 Orders Only [facility] [address] [place] [address] Aleah Hilton, [facility] COVID 12/16/2020 1:15 PM EDT - 12/16/2020 5:03 PM EDT Emergency [place] [address] Adonis Watts MD COVID (Primary Dx); Generalized weakness; Cough Discharge Disposition: Home or Self Care 05/10/2019 Refill [facility] [address] [place] [phone] Scott Whelan MD Medication Refill 11/19/2013 4:15 PM EDT Office Visit [facility] [address] [place] [phone] Jasen Phipps, DPM Plantar fascial fibromatosis (Primary Dx); Difficulty in walking(149.7) 11/02/2013 11:54 AM EDT - 11/02/2013 11:59 PM EDT Hospital Encounter [facility] [address] [address] Giancarlo Ruelas MD Backache, unspecified; Other chronic pain; Displacement of intervertebral disc, site unspecified, without myelopathy Discharge Disposition: Home or Self Care 04/29/2011 9:00 AM EST Office Visit [facility] [address] [place] [phone] Madeline Catalan MD Mental health disorder; Back [...] Alive Social History Smoking Status as of 01/21/2025 Tobacco Use Types Packs/Day Years Used Date [...] BASELINE W/ REFLEX (12/16/2020 2:05 PM EDT) wp-iDglslwoq-B <6 <22 ng/L 12/16/2020 2:24 PM EDT [facility] Comment:See the website Kadoink for rule out [place] care pathway, conditions other than AMI that can cause elevated hs cTnT, and comparison of values from the 4th and 5th generation Dayron tests. https://askmayoexpert.[email or web address].org/topic/clinical-answers/gnt-51471132/cpm-[email or web address] [address]4665 Blood VENOUS BLOOD / Unknown Venipuncture / Unknown 12/16/2020 2:05 PM EDT 12/16/2020 2:06 PM EDT Narrative [facility] - 12/16/2020 2:24 PM EDT Ingestion of armando doses of biotin (>5 mg/day) taken within 8 hours of drawing blood sample can interfere with this immunoassay test. us Adonis Watts MD CHEMISTRY ORDERABLES Fi nal Result Performing Organization Address [facility]/ZIP Co de Phone Number [facility] [address] [place] [address] * (ABNORMAL) CBC (12/16/2020 2:05 PM EDT) WBC 3.6(L) 3.7 - 10.3 x10(3)/mcL 12/16/2020 2:11 PM EDT [facility] RBC 4.66 4.60 - 6.10 x10(6)/mcL 12/16/2020 2:11 PM EDT [facility] Hgb 14.4 13.7 - 17.5 g/dL 12/16/2020 2:11 PM EDT [facility] Hct 41.3 40.0 - 51.0 % 12/16/2020 2:11 PM EDT [facility] MCV 88.6 80.0 - 100.0 fL 12/16/2020 2:11 PM EDT [facility] MCH 30.9 26.0 - 34.0 pg 12/16/2020 2:11 PM EDT [facility] MCHC 34.9 30.7 - 35.5 g/dL 12/16/2020 2:11 PM EDT [facility] RDW 12.6 <=14.9 % 12/16/2020 2:11 PM EDT [facility] Platelet 132(L) 155 - 369 x10(3)/mcL 12/16/2020 2:11 PM EDT [facility] MPV 9.4 8.8 - 12.5 fL 12/16/2020 2:11 PM EDT [facility] Blood VENOUS BLOOD / Unknown Venipuncture / Unknown 12/16/2020 2:05 PM EDT 12/16/2020 2:06 PM EDT us Adonis Watts MD HEMATOLOGY ORDERABLES F inal Result Performing Organization Address City/[facility]/ZIP Co de Phone Number [facility] [address] [place] [address] * BASIC METABOLIC PANEL (12/16/2020 2:05 PM EDT) Sodium 136 136 - 145 mmol/L 12/16/2020 2:22 PM EDT [facility] Potassium 3.5 3.5 - 5.0 mmol/L 12/16/2020 2:22 PM EDT [facility] Chloride 99 98 - 107 mmol/L 12/16/2020 2:22 PM EDT [facility] Total CO2 25 22 - 29 mmol/L 12/16/2020 2:22 PM EDT [facility] Anion Gap 12 7 - 16 mmol/L 12/16/2020 2:22 PM EDT [facility] Calcium 8.7 8.6 - 10.4 mg/dL 12/16/2020 2:22 PM EDT [facility] Glucose Lvl 84 74 - 100 mg/dL 12/16/2020 2:22 PM EDT [facility] BUN 18 6 - 20 mg/dL 12/16/2020 2:22 PM EDT [facility] Creatinine 1.01 0.67 - 1.30 mg/dL 12/16/2020 2:22 PM EDT [facility] GFR Afr Am 98 >=60 mL/min/1.7 3 m2 12/16/2020 2:22 PM EDT [facility] GFR Non Afr Am 85 >=60 mL/min/1.7 3 m2 12/16/2020 2:22 PM EDT [facility] Comment: This estimated GFR was calculated [...] Watts MD CHEMISTRY ORDERABLES Fi nal Result [facility] [address] [place] [address] * EK EKG 12 LEAD (12/16/2020 1:45 PM EDT) Anatomical Region Laterality Modality Electrocardiogra phy 12/16/2020 2:01 PM EDT Impressions 12/16/2020 2:16 PM EDT [place] [facility] Test Date: 2020-12-16 Pat Name: [facility] Department: DEPID Room: 35 Gender: Male Vehicle Modification Technician: Lt : 1970 Requested By: ADONIS Horton Order Number: [id number] Reading MD: Ishan Gonzalez MD Measurements Intervals Holder Rate: 67 P: 8 WV: 154 QRS: 17 QRSD: 94 T: 3 QT: 379 QTc: 402 Interpretive Statements SINUS RHYTHM Electronically Signed On 12-16-2020 14:16:45 EDT by Ishan Gonzalez MD Narrative Procedure Note Ishan Gonzalez MD - 12/16/2020 IMPRESSION [place] [facility] Test Date: 2020-12-16 Pat Name: [facility] Department: DEPID Room: 35 Gender: Male Vehicle Modification Technician: Lt : 1970 Requested By: ADONIS KENT Order Number: [id number] Reading MD: Ishan Gonzalez MD Measurements Intervals Holder Rate: 67 P: 8 WV: 154 QRS: 17 QRSD: 94 T: 3 QT: 379 QTc: 402 Interpretive Statements SINUS RHYTHM Electronically Signed On 12-16-2020 14:16:45 EDT by Ishan Gonzalez MD us Adonis Watts MD IMG ECG ORDERABLES Anais l Result * (ABNORMAL) CORONAVIRUS 2019 (12/16/2020 1:35 PM EDT) CORONAVIRUS [id number] Detected( A) Not Detected 12/16/2020 2:22 PM EDT [facility] Comment: This test is a real-time [...] and Patients: RASHID Fact Sheet for Providers: https://www.fda.gov/media/535591/download RASHID Fact Sheet for Patients: https://www.fda.gov/media/068077/download Test is performed on the [employer] RASHID platform under the FDA's Emergency Use Authorization (EUA). Performed at [address] [address] CLIA [id number] Swab BOTH ANTERIOR NARES / Unknown 12/16/2020 1:35 PM EDT 12/16/2020 1:42 PM EDT Adonis Watts MD MICROBIOLOGY - GENERAL ORDERABLES Final Result [facility] [address] [place] [address] * MRI LUMBAR SPINE WO CONTRAST (11/02/2013 [...] Nov 02, 2013 01:00:36 PM HISTORY: 724.5-Backache, [id number]-HJN-3-CM Alignment is normal. Marrow signal is normal. [...] Nov 02, 2013 01:00:36 PM HISTORY: 724.5-Backache, mqcfbcyeckn-KLL-0-CM Alignment is normal. Marrow signal is normal. [...]
--- OUTSIDE RECORDS SUMMARY | 2025-01-21 10:52 | XMS_ITS | Encounter Summary ---
Author Organization [facility] Address [address] [place] [address] Care Team Providers Care Temporary Receptionist Name Role Phone Heaven Hemphill MD Primary Care Provider [phone] None, None Primary Care Provider Unavailabl e Reason for Visit * Reason Comments Medications Refill Encounter Details Date Type Department Care Team (Late st Contact Info) Description 05/10/2019 Refill [facility] Physicians - Primary Care, [place] [address] [place] [address] Heaven Hemphill MD [address] [place] [address] Medications Refill Social History Tobacco Use Types [...] laterality Bipolar affective disorder, remission status unspecified ([facility]) Hypertriglyceridemia Pure hyperglyceridemia Hyperlipidemia, unspecified hyperlipidemia type Screening PSA (prostate specific antigen) Special screening for malignant neoplasm of prostate Encounter for screening colonoscopy Special screening for malignant neoplasms, colon Dysphagia, unspecified type Medicare annual wellness visit, subsequent Routine general medical examination at a [facility] care facility Benign prostatic hyperplasia with urinary hesitancy documented in this encounter Care Teams Temporary Receptionist Relationship Specialty Start Date End Date Heaven Hemphill MD [address] [place] [address] PCP - General Internal Medicine 07/05/18 06/10/19 None, None [address] [place] [address] PCP - General 06/11/19 documented as of this encounter
--- OUTSIDE RECORDS SUMMARY | 2025-01-21 10:52 | XMS_ITS | Encounter Summary ---
Author Organization [facility] Address [address] [place] [address] Care Team Providers Care Mobile Heavy Equipment Operator Name Role Phone Giancarlo Ruelas MD Primary Care Provider [phone] Heaven Hemphill MD Primary Care Provider [phone] None, None Primary Care Provider Unavailabl e Reason for Visit * Reason Comments Medications Refill Encounter Details Date Type Department Care Team (Late st Contact Info) Description 03/31/2017 Refill [facility] Physicians - Primary Care, [place] [address] [place] [address] [place] [address] Medications Refill Social History Tobacco [...] on filedocumented in this encounter Care Teams Mobile Heavy Equipment Operator Relationship Specialty Start Date End Date Giancarlo Ruelas MD PCP - General Family Medicine 09/07/13 07/04/18 Heaven Hemphill MD [address] [place] [address] [place] [address] PCP - General Internal Medicine 07/05/18 06/10/19 None, None [address] [place] [address] PCP - General 06/11/19 documented as of this encounter
--- OUTSIDE RECORDS SUMMARY | 2025-01-21 10:52 | XMS_ITS | Encounter Summary ---
Author Organization [facility] Address [address] [place] [address] Care Team Providers Care Tie Buyer Name Role Phone Heaven Hemphill MD Primary Care Provider [phone] None, None Primary Care Provider Unavailabl e Reason for Visit * Reason Comments Medications Refill Encounter Details Date Type Department Care Team (Late st Contact Info) Description 05/05/2019 Refill [facility] Physicians - Primary Care, [place] [address] [place] [address] Heaven Hemphill MD [address] [place] [address] Medications Refill Social History Tobacco Use Types [...] medication Bipolar affective disorder, remission status unspecified ([facility]) Chronic back pain, unspecified back location, unspecified [...] hesitancy documented in this encounter Care Teams Tie Buyer Relationship Specialty Start Date End Date Heaven Hemphill MD [facility] [place] [address] PCP - General Internal Medicine 07/05/18 06/10/19 None, None [address] [place] [address] PCP - General 06/11/19 documented as of this encounter
--- OUTSIDE RECORDS SUMMARY | 2025-01-21 10:52 | XMS_ITS | Encounter Summary ---
Author Organization [facility] Address [address] [place] [address] Care Team Providers Care Spinner Hydraulic Name Role Phone Giancarlo Ruelas MD Primary Care Provider [phone] Heaven Hemphill MD Primary Care Provider [phone] None, None Primary Care Provider Unavailabl e Reason for Visit * Reason Comments Medications Refill Encounter Details Date Type Department Care Team (Late st Contact Info) Description 10/18/2016 Refill [facility] Physicians - Primary Care, [place] [address] [place] [address] [place] [address] Medications Refill Social History Tobacco [...] on filedocumented in this encounter Care Teams Spinner Hydraulic Relationship Specialty Start Date End Date Giancarlo Ruelas MD PCP - General Family Medicine 09/07/13 07/04/18 Heaven Hemphill MD [address] [place] [address] PCP - General Internal Medicine 07/05/18 06/10/19 None, None [address] [facility] [place] [address] PCP - General 06/11/19 documented as of this encounter
--- OUTSIDE RECORDS SUMMARY | 2025-01-21 10:52 | XMS_ITS | Clinical Summary ---
Author Organization [facility] Address [address] [place] [address] Care Team Providers Care Criminalist Technician Name Role Phone None, None Primary Care [...] high-risk medication,Bipolar affective disorder, remission status unspecified (CMS/HCC),Chronic back pain, unspecified back location, unspecified back [...] pain laterality,Bipolar affective disorder, remission status unspecified (CMS/HCC),Hypertrig lyceridemia,Hyperli pidemia, unspecified hyperlipidemia type,Screening PSA (prostate specific antigen),Encounter for screening colonoscopy,Dysphag ia, unspecified type,Medicare annual wellness visit, subsequent,Benign prostatic hyperplasia with urinary hesitancy TAKE 1 TABLET BY MOUTH EVERY DAY 30 Tab 11 0 Active FLUoxetine (PROZAC) 40 mg capsuleIndications: Bipolar affective disorder, remission status unspecified (CMS/HCC) TAKE 1 CAPSULE BY MOUTH EVERY DAY 90 Cap 1 0 Active bupropion XL (WELLBUTRIN XL) 150 mg tabletIndications:L caroline-term use of high-risk medication,Bipolar affective disorder, remission status unspecified (CMS/HCC) TAKE 1 TABLET BY MOUTH EVERY DAY [...] 03/13/2014 Chronic back pain Bipolar affective disorder Herniated disc Resolved Problems Problem Noted Date [...] PCV) 2018 Zoster-RZV(Shingrix) (1 of 2) 2018 Lipid Monitoring 06/08/2020 06/08/2019, , 05/31/2018, Additional history exists Depression Screening 04/11/2024 COVID-19 Vaccine (1 - 2023-2 5 season) 2024 Influenza Vaccination (#1) 2024 01/20/2018 Colonoscopy 04/14/2028 04/14/2018 Colorectal Cancer Screening 04/14/2028 Influenza Vaccination (Yearly) Discontinued 1 , 08/25/2016 (Patient/Parent/Guardian Counseled and Declines) Lipid Screening Discontinued 06/08/2019, 11/10, 05/31/2018, Additional history exists Procedures Procedure Name Priority Date/Time Associated Diagnosis Comments LIPID PROFILE Routine 06/08/2019 11:55 AM EST Hypertriglyceridemia Hyperlipidemia, unspecified hyperlipidemia type EXTERNAL COLONOSCOPY - SEE COMMENT Routine 04/14/2018 from Last 3 Months or Most Recently Relevant to Health Maintenance Results * (ABNORMAL) LIPID PROFILE (06/08/2019 11:55 AM EST) Chol/HDL Ratio 4.9 0 - 5 TC E XTERNAL LAB Cholesterol 226(H) 125 - [...] Desirable Triglycerides 199(H) 0 - 150 mg/dL [facility] Comment: TOTAL TRIGLYCERIDE INTERPRETATION: Less than 150 mg/dL Normal 150-199 mg/dL Borderline HIgh 200-499 mg/dL High Greater or Equal to 500 mg/dL Very High Serum (Serum) 06/08/2019 11: 55 AM EST 06/08/2019 7:41 PM EST us Heaven Hemphill MD CHEMISTRY ORDERABLES Final Result Performing Organization Address [facility] Co de Phone Number [facility] [address] * EXTERNAL COLONOSCOPY - SEE COMMENT (04/14/2018) us Historical Provider PA IMAGING Final Result Performing Organization Address City/[facility] Co de Phone Number [facility] [address] [place] [address] from Last 3 Months or Most Recently Relevant to Health Maintenance Insurance [employer] Member Subscriber Plan / Payer (Ef fective 2018-Present) Name:DAVE COOK Relation to Subscriber:Self Name:Dave Cook Marie Payer ID:[id number] (NAIC) Group ID:[id number] Type:PPO Address: [address] [place] [id number] [employer] Care Teams Criminalist Technician Relationship Specialty Start Date End Date None, None [address] [place] [address] PCP - General 06/11/19
--- OUTSIDE RECORDS SUMMARY | 2025-01-21 10:52 | XMS_ITS | Encounter Summary ---
Author Organization [facility] Address [address] [place] [address] Care Team Providers Care Insurance Producer Name Role Phone Giancarlo Ruelas MD Primary Care Provider Heaven Hemphill MD Primary Care Provider [phone] None, None Primary Care Provider Unavailabl e Reason for Visit * Reason Comments Medications Refill Encounter Details Date Type Department Care Team (Late st Contact Info) Description 11/17/2016 Refill [facility] Physicians - Primary Care, [place] [address] [place] [address] Dolores Livingston, BANK EXAMINER [address] [facility] [place] [address] [place] [address] Medications Refill Social History Tobacco Use Types [...] on filedocumented in this encounter Care Teams Insurance Producer Relationship Specialty Start Date End Date Giancarlo Ruelas MD PCP - General Family Medicine 09/07/13 07/04/18 Heaven Hemphill MD [address] [place] [address] [place] [address] PCP - General Internal Medicine 07/05/18 06/10/19 None, None [address] [place] [address] PCP - General 06/11/19 documented as of this encounter
== END 2025-01-18 23:59 ==
LOC: LAB.DROPOF 01-21 10:37
PROVIDERS: PCP Family Medicine; Visit Provider Family Medicine
DX: I25.10 Atherosclerotic heart disease of native coronary artery without angina pectoris (principal); E78.5 Hyperlipidemia, unspecified; G47.30 Sleep apnea, unspecified; F41.9 Anxiety disorder, unspecified; F51.04 Psychophysiologic insomnia
CPT/HCPCS: 80053; 84403; 84443